=== PATIENT | female | born 1960 | race African-American/Black ===

== ENCOUNTER 2018-08-23 17:40 | Inpatient (IN) | payer MEDICAID, OTHER ==
[~2018-08-23] VITALS: Ht 167.6 cm; Wt 61.7 kg
[~2018-08-23 17:40] MED LIST: ETOMIDATE 2MG/ML 10ML VIAL IV ONE; SUCCINYLCHOLINE CHLORIDE 200MG/10ML IV ONE
[2018-08-23] MEDS ORDERED: METHYLPREDNISOLONE SOD SUCC 125 MG/2 ML VIAL IV STA (17:58)
[2018-08-23] MEDS ORDERED: ALBUTEROL (0.083%) 2.5MG/3ML NEB HHN STA (17:58)
[2018-08-23] MEDS ORDERED: IPRATROPIUM BROMIDE (0.02%) 0.5MG/2.5ML NEB HHN STA (17:58)
[2018-08-23] MEDS ORDERED: SODIUM CHLORIDE 0.9% 1000ML BAG (SEPSIS BOLUS) IV ONE (18:00)
[2018-08-23] MEDS ORDERED: LEVETIRACETAM 500MG PREMIX 100 ML IV ONE (18:00)
[2018-08-23] MEDS ORDERED: IPRATROPIUM/ALBUTEROL 0.5-3(2.5)MG/3ML NEB ONE (18:08)
[2018-08-23 18:22] LABS: CHLORIDE 103 mEq/L (98-107)
[2018-08-23 18:26] LABS: ETHANOL BLOOD < 10 mg/dL; HEMATOCRIT. 44.6 % (36.0-48.0); HEMOGLOBIN. 14.3 g/dL (12.0-16.0); MEAN CORPUSCULAR HEMOGLOBIN 30.3 pg (28.0-32.0); MEAN CORPUSCULAR VOLUME 94.5 fL (81.0-99.0); MEAN PLATELET VOLUME 7.9 fl (7.4-10.4); PLATELET 317 x1000/uL (130-400); RED BLOOD CELL COUNT 4.72 mill/uL (4.2-5.4); RED CELL DISTRIBUTION WIDTH 15.4 % (11.6-14.6)
[2018-08-23 18:27] LABS: D-DIMER 0.6 mg/L FEU (<0.50); PARTIAL THROMBOPLASTIN TIME 27.8 sec (23.4-31.0); PROTHROMBIN TIME 10.2 sec (9.6-11.0)
[2018-08-23 18:42] LABS: BG BASE EXCESS -10.6 mmol/L (-2.0-2.0); BG CARBOXYHEMOGLOBIN 2.6 % (0.5-1.5); BG DEOXYHEMOGLOBIN 5.9 % (0.0-5.0); BG FRACTION INSPIRED OXYGEN 21; BG HCO3 ACT 21.8 mmol/L (22.0-26.0); BG METHEMOGLOBIN 0.3 % (0.0-1.5); BG OXYGEN SATURATION 93.9 % (92.0-98.5); BG OXYHEMOGLOBIN 91.2 % (94.0-97.0); BG PCO2 81.1 mmHg (35.0-45.0); BG PH 7.048 (7.350-7.450); BG PO2 97.4 mmHg (75.0-100.0); BG SAMPLE SITE RIGHT RADIAL; BG TOTAL HEMOGLOBIN 15.9 g/dL (12.0-18.0); BG VENT MODE ROOM AIR
[2018-08-23] MEDS ORDERED: PROPOFOL 10MG/ML 100ML 100 ML IV SCH (18:45)
[2018-08-23 19:10] LABS: PLATELET ESTIMATE NORMAL
[2018-08-23] MEDS ORDERED: PIPERACILLIN/TAZ 3.375G PREMIX 50 ML IV ONE (19:15)
[2018-08-23] MEDS ORDERED: VANCOMYCIN 1 G PREMIX 200 ML IV SCH (19:15)
[2018-08-23] MEDS ORDERED: SODIUM CHLORIDE 0.9% 1,000 ML IV ONE (19:36)
[2018-08-23] MEDS ORDERED: MIDAZOLAM HCL 2 MG/2 ML VIAL ONE (19:40)
[2018-08-23] MEDS ORDERED: MIDAZOLAM HCL 50 MG in DEXTROSE 5% WATER 40 ML IV ONE ×6 (19:45)
[2018-08-23] MEDS ORDERED: MIDAZOLAM HCL 2 MG/2 ML VIAL IV ONE (19:45)
[2018-08-23] MEDS ORDERED: MIDAZOLAM HCL 50 MG in DEXTROSE 5% WATER 40 ML IV PRN (19:45)
[2018-08-23 20:16] LABS: BG BASE EXCESS -9.6 mmol/L (-2.0-2.0); BG CARBOXYHEMOGLOBIN 1.4 % (0.5-1.5); BG DEOXYHEMOGLOBIN 0.5 % (0.0-5.0); BG FRACTION INSPIRED OXYGEN 60; BG HCO3 ACT 18.2 mmol/L (22.0-26.0); BG METHEMOGLOBIN 0.4 % (0.0-1.5); BG OXYGEN SATURATION 99.5 % (92.0-98.5); BG OXYHEMOGLOBIN 97.7 % (94.0-97.0); BG PH 7.206 (7.350-7.450); BG PO2 344.8 mmHg (75.0-100.0); BG SAMPLE SITE LEFT BRACHIAL; BG TIDAL VOLUME(mL) 450 mL; BG TOTAL HEMOGLOBIN 14.2 g/dL (12.0-18.0); BG VENT MODE VENT - A/C; BG VENT RATE 18 set
[2018-08-23 21:36] LABS: CLARITY URINE CLOUDY (CLEAR); COLOR URINE YELLOW (YELLOW); KETONES URINE NEGATIVE (NEGATIVE); LEUKOCYTE ESTERASE URINE NEGATIVE (NEGATIVE); NITRITE URINE NEGATIVE (NEGATIVE); OCCULT BLOOD URINE 3+ (NEGATIVE); PH URINE 5.5 (4.5-8.0); PROTEIN URINE 2+ (NEGATIVE); SPECIFIC GRAVITY URINE 1.027 (1.005-1.030); UROBILINOGEN URINE 0.2 E.U./dL (0.2-1.0)
[2018-08-23] MEDS ORDERED: IOHEXOL-350 100 ML BOTTLE ONE (22:58)
[2018-08-23 23:01] VITALS: BP 134/92
[2018-08-23 23:22] VITALS: BP 140/99
[2018-08-23] MEDS ORDERED: TIOT4MIS2 IH (23:26)
[2018-08-23] MEDS ORDERED: ALBU05 IH (23:26)
[2018-08-23 23:30] VITALS: BP 132/93
[2018-08-23 23:45] VITALS: BP 145/98
[2018-08-23 23:55] VITALS: BP 134/92
[2018-08-24] VITALS (55 sets, daily range): BP systolic 108–179; BP diastolic 63–108
[2018-08-24] MEDS: PROPOFOL 10MG/ML 100ML 100 ML IV PRN ×3 (01:13→16:50)
[2018-08-24] MEDS ORDERED: NOREPINEPHRINE 8 MG in DEXT 5% WATER 242 ML IV PRN (01:15)
[2018-08-24] MEDS: METRONIDAZOLE 500 MG PREMIX 100 ML IV SCH ×3 (02:52→17:30)
[2018-08-24] MEDS: CEFEPIME 1,000 MG in DEXTROSE 5% WATER 50 ML IV SCH ×2 (03:55→14:32)
[2018-08-24 05:23] LABS: *AMPHETAMINES SCREEN URINE NEGATIVE (NEGATIVE); *BARBITURATES SCREEN URINE NEGATIVE (NEGATIVE); *BENZODIAZEPINES SCREEN URINE PRESUMTIVE POSITIVE (NEGATIVE); *COCAINE SCREEN URINE PRESUMTIVE POSITIVE (NEGATIVE); METHADONE URINE SCREEN NEGATIVE (NEGATIVE); OPIATES URINE SCREEN NEGATIVE (NEGATIVE)
[2018-08-24 05:24] LABS: CANNABINOID URINE SCREEN NEGATIVE (NEGATIVE); PHENCYCLIDINE URINE SCREEN NEGATIVE (NEGATIVE)
[2018-08-24 06:22] LABS: HEMATOCRIT. 42.2 % (36.0-48.0); HEMOGLOBIN. 13.8 g/dL (12.0-16.0); MEAN CORPUSCULAR HEMOGLOBIN 29.8 pg (28.0-32.0); MEAN PLATELET VOLUME 8.8 fl (7.4-10.4); PLATELET 193 x1000/uL (130-400); RED BLOOD CELL COUNT 4.64 mill/uL (4.2-5.4)
[2018-08-24 06:28] LABS: CHLORIDE 114 mEq/L (98-107)
[2018-08-24] MEDS: SODIUM CHLORIDE 0.9% 1,000 ML IV SCH ×2 (07:00→21:03)
[2018-08-24] MEDS: IPRATROPIUM/ALBUTEROL 0.5-3(2.5)MG/3ML NEB HHN SCH ×4 (08:44→20:05)
[2018-08-24 09:12] LABS: BG BASE EXCESS -4.4 mmol/L (-2.0-2.0); BG CARBOXYHEMOGLOBIN 0.3 % (0.5-1.5); BG DEOXYHEMOGLOBIN 0.9 % (0.0-5.0); BG FRACTION INSPIRED OXYGEN 40; BG METHEMOGLOBIN 0.2 % (0.0-1.5); BG OXYGEN SATURATION 99.1 % (92.0-98.5); BG OXYHEMOGLOBIN 98.6 % (94.0-97.0); BG PCO2 34.9 mmHg (35.0-45.0); BG PH 7.377 (7.350-7.450); BG PO2 178.2 mmHg (75.0-100.0); BG SAMPLE SITE RIGHT RADIAL; BG TIDAL VOLUME(mL) 450 mL; BG TOTAL HEMOGLOBIN 13.5 g/dL (12.0-18.0); BG VENT MODE VENT - A/C; BG VENT RATE 20 set
[2018-08-24] MEDS: BUDESONIDE 0.5MG/2ML NEB HHN SCH ×2 (11:24→20:05)
[2018-08-24] MEDS: LANSOPRAZOLE 30MG DR CAPSULE NG SCH (11:45)
[2018-08-24] MEDS: ENOXAPARIN 40MG/0.4ML SYR SUBCUT SCH (11:45)
[2018-08-24] MEDS: FENTANYL CITRATE/PF 500 MCG in SODIUM CHLORIDE 0.9% 40 ML IV PRN (14:15)
[2018-08-24] MEDS ORDERED: DEXTROSE 50% WATER 50ML SYRINGE IV PRN (15:00)
[2018-08-24] MEDS: INSULIN LISPRO 100 UNITS/ML SUBCUT SCH ×2 (16:00→22:00)
[2018-08-24 16:03] LABS: PLATELET ESTIMATE NORMAL
[2018-08-24] MEDS: BLOOD SUGAR DIAGNOSTIC STRIP TEST SCH ×2 (16:08→22:20)
[2018-08-24] MEDS: LEVETIRACETAM 500 MG in SODIUM CHLORIDE 0.9% 100 ML IV SCH (21:06)
[2018-08-25] VITALS (56 sets, daily range): BP systolic 95–188; BP diastolic 37–160
[2018-08-25] MEDS: IPRATROPIUM/ALBUTEROL 0.5-3(2.5)MG/3ML NEB HHN SCH ×7 (00:11→23:43)
[2018-08-25] MEDS: METRONIDAZOLE 500 MG PREMIX 100 ML IV SCH ×2 (01:35→11:25)
[2018-08-25] MEDS: CEFEPIME 1,000 MG in DEXTROSE 5% WATER 50 ML IV SCH (02:48)
[2018-08-25] MEDS: INSULIN LISPRO 100 UNITS/ML SUBCUT SCH ×4 (04:00→21:29)
[2018-08-25] MEDS: FENTANYL CITRATE/PF 500 MCG in SODIUM CHLORIDE 0.9% 40 ML IV PRN (04:32)
[2018-08-25] MEDS: BLOOD SUGAR DIAGNOSTIC STRIP TEST SCH ×4 (04:35→21:29)
[2018-08-25 05:29] LABS: HEMATOCRIT. 36.9 % (36.0-48.0); HEMOGLOBIN. 12.3 g/dL (12.0-16.0); MEAN CORPUSCULAR HEMOGLOBIN 30.2 pg (28.0-32.0); MEAN CORPUSCULAR VOLUME 90.9 fL (81.0-99.0); MEAN PLATELET VOLUME 7.6 fl (7.4-10.4); PLATELET 184 x1000/uL (130-400); RED BLOOD CELL COUNT 4.06 mill/uL (4.2-5.4); RED CELL DISTRIBUTION WIDTH 15.2 % (11.6-14.6)
[2018-08-25 05:42] LABS: CHLORIDE 117 mEq/L (98-107)
[2018-08-25] MEDS: SODIUM CHLORIDE 0.45% 1,000 ML IV SCH ×2 (07:00→20:36)
[2018-08-25] MEDS: PROPOFOL 10MG/ML 100ML 100 ML IV PRN (07:07)
[2018-08-25 07:52] LABS: BG BASE EXCESS -4.1 mmol/L (-2.0-2.0); BG CARBOXYHEMOGLOBIN 0.2 % (0.5-1.5); BG DEOXYHEMOGLOBIN 2.5 % (0.0-5.0); BG HCO3 ACT 20.6 mmol/L (22.0-26.0); BG METHEMOGLOBIN 0.2 % (0.0-1.5); BG OXYGEN SATURATION 97.5 % (92.0-98.5); BG OXYHEMOGLOBIN 97.1 % (94.0-97.0); BG PCO2 36.5 mmHg (35.0-45.0); BG PO2 102.9 mmHg (75.0-100.0); BG SAMPLE SITE RIGHT RADIAL; BG TIDAL VOLUME(mL) 450 mL; BG TOTAL HEMOGLOBIN 12.3 g/dL (12.0-18.0); BG VENT MODE VENT - A/C; BG VENT RATE 20 set
[2018-08-25] MEDS: BUDESONIDE 0.5MG/2ML NEB HHN SCH ×2 (08:00→20:13)
[2018-08-25] MEDS ORDERED: LIDOCAINE HCL/PF 1% 2ML VIAL ONE (08:35)
[2018-08-25] MEDS: LEVETIRACETAM 500 MG in SODIUM CHLORIDE 0.9% 100 ML IV SCH ×2 (08:45→20:38)
[2018-08-25] MEDS: LANSOPRAZOLE 30MG DR CAPSULE NG SCH (08:45)
[2018-08-25] MEDS: ENOXAPARIN 40MG/0.4ML SYR SUBCUT SCH (08:45)
[2018-08-25 09:49] LABS: PLATELET ESTIMATE NORMAL
[2018-08-25 11:58] LABS: BG BASE EXCESS -5.2 mmol/L (-2.0-2.0); BG CARBOXYHEMOGLOBIN 0.1 % (0.5-1.5); BG CPAP (cmH2O) 0 cm(H2O); BG DEOXYHEMOGLOBIN 1.7 % (0.0-5.0); BG HCO3 ACT 21.5 mmol/L (22.0-26.0); BG METHEMOGLOBIN 0.4 % (0.0-1.5); BG OXYGEN SATURATION 98.3 % (92.0-98.5); BG OXYHEMOGLOBIN 97.8 % (94.0-97.0); BG PCO2 46.1 mmHg (35.0-45.0); BG PH 7.286 (7.350-7.450); BG PO2 136.3 mmHg (75.0-100.0); BG SAMPLE SITE RIGHT RADIAL; BG TOTAL HEMOGLOBIN 13.1 g/dL (12.0-18.0); BG VENT MODE VENT - CPAP
[2018-08-25] MEDS ORDERED: METHYLPREDNISOLONE SOD SUCC 125 MG/2 ML VIAL IV SCH (12:00)
[2018-08-25] MEDS: CEFTRIAXONE 1 G PREMIX 50 ML IV SCH (13:23)
[2018-08-25] MEDS: HYDRALAZINE 20MG/ML VIAL IV PRN ×2 (13:23→18:41)
[2018-08-25] MEDS: AZITHROMYCIN 500MG in DEXTROSE 5% WATER 250ML IV SCH (13:23)
[2018-08-25] MEDS: MORPHINE SULFATE 2 MG/ML CPJ (NOT FOR IM USE) IV PRN ×2 (14:28→19:33)
[2018-08-25] MEDS: LORAZEPAM 2MG/ML CPJ IV PRN ×2 (14:28→23:58)
[2018-08-25] MEDS: METHYLPREDNISOLONE SOD SUCC 125 MG/2 ML VIAL IV SCH (20:16)
[2018-08-26] VITALS (60 sets, daily range): BP systolic 80–181; BP diastolic 35–114
[2018-08-26] MEDS: IPRATROPIUM/ALBUTEROL 0.5-3(2.5)MG/3ML NEB HHN SCH ×5 (03:03→19:55)
[2018-08-26] MEDS: METHYLPREDNISOLONE SOD SUCC 125 MG/2 ML VIAL IV SCH ×2 (03:24→13:16)
[2018-08-26] MEDS: BLOOD SUGAR DIAGNOSTIC STRIP TEST SCH ×4 (05:25→23:57)
[2018-08-26 05:35] LABS: BASOPHILS % 0.6 % (0.0-2.0); HEMATOCRIT. 37.1 % (36.0-48.0); HEMOGLOBIN. 12.4 g/dL (12.0-16.0); LYMPHOCYTES % 7.3 % (20.0-50.0); MEAN CORPUSCULAR HEMOGLOBIN 29.9 pg (28.0-32.0); MEAN CORPUSCULAR VOLUME 89.3 fL (81.0-99.0); MEAN PLATELET VOLUME 7.6 fl (7.4-10.4); MONOCYTES % 4.2 % (2.0-8.0); NEUTROPHILS % 87.9 % (40.0-76.0); PLATELET 200 x1000/uL (130-400); RED BLOOD CELL COUNT 4.15 mill/uL (4.2-5.4); RED CELL DISTRIBUTION WIDTH 14.8 % (11.6-14.6)
[2018-08-26 05:44] LABS: CHLORIDE 108 mEq/L (98-107)
[2018-08-26] MEDS: MORPHINE SULFATE 2 MG/ML CPJ (NOT FOR IM USE) IV PRN ×2 (05:53→16:09)
[2018-08-26] MEDS: INSULIN LISPRO 100 UNITS/ML SUBCUT SCH ×3 (06:00→17:40)
[2018-08-26] MEDS: BUDESONIDE 0.5MG/2ML NEB HHN SCH (08:03)
[2018-08-26] MEDS: FAMOTIDINE 20MG TABLET PO SCH ×2 (08:39→21:06)
[2018-08-26] MEDS: LORAZEPAM 2MG/ML CPJ IV PRN ×2 (08:39→16:09)
[2018-08-26] MEDS: AZITHROMYCIN 500MG in DEXTROSE 5% WATER 250ML IV SCH (08:40)
[2018-08-26] MEDS: LEVETIRACETAM 500 MG in SODIUM CHLORIDE 0.9% 100 ML IV SCH ×2 (08:40→21:05)
[2018-08-26] MEDS: ENOXAPARIN 40MG/0.4ML SYR SUBCUT SCH (08:40)
[2018-08-26 09:46] LABS: BG BASE EXCESS -3.9 mmol/L (-2.0-2.0); BG CARBOXYHEMOGLOBIN 0.3 % (0.5-1.5); BG DEOXYHEMOGLOBIN 1.8 % (0.0-5.0); BG FRACTION INSPIRED OXYGEN 35; BG METHEMOGLOBIN 0.5 % (0.0-1.5); BG OXYGEN SATURATION 98.2 % (92.0-98.5); BG OXYHEMOGLOBIN 97.4 % (94.0-97.0); BG PCO2 42.8 mmHg (35.0-45.0); BG PH 7.328 (7.350-7.450); BG PO2 126.4 mmHg (75.0-100.0); BG SAMPLE SITE RIGHT RADIAL; BG TIDAL VOLUME(mL) 500 mL; BG TOTAL HEMOGLOBIN 13.7 g/dL (12.0-18.0); BG VENT MODE VENT - A/C; BG VENT RATE 16 set
[2018-08-26] MEDS ORDERED: ALPRAZOLAM 0.5 MG TABLET PO PRN (10:15)
[2018-08-26] MEDS: ALPRAZOLAM 0.5 MG TABLET PO SCH ×3 (10:25→21:05)
[2018-08-26] MEDS: CEFTRIAXONE 1 G PREMIX 50 ML IV SCH (10:25)
[2018-08-26 11:55] LABS: BG BASE EXCESS -2.1 mmol/L (-2.0-2.0); BG CARBOXYHEMOGLOBIN 0.1 % (0.5-1.5); BG DEOXYHEMOGLOBIN 2.1 % (0.0-5.0); BG FRACTION INSPIRED OXYGEN 35; BG HCO3 ACT 24.1 mmol/L (22.0-26.0); BG METHEMOGLOBIN 0.5 % (0.0-1.5); BG OXYGEN SATURATION 97.9 % (92.0-98.5); BG OXYHEMOGLOBIN 97.3 % (94.0-97.0); BG PCO2 46.6 mmHg (35.0-45.0); BG PH 7.331 (7.350-7.450); BG PO2 118.1 mmHg (75.0-100.0); BG PRESSURE SUPPORT 8; BG SAMPLE SITE RIGHT RADIAL; BG TOTAL HEMOGLOBIN 13.2 g/dL (12.0-18.0); BG VENT MODE VENT - CPAP
[2018-08-26] MEDS ORDERED: LIDOCAINE HCL 1% 20ML VIAL (Pyxis) INJ ONE (12:02)
[2018-08-26] MEDS: SODIUM CHLORIDE 0.45% 1,000 ML IV SCH (13:16)
[2018-08-26] MEDS: HYDRALAZINE 20MG/ML VIAL IV PRN (15:45)
[2018-08-26] MEDS: IPRATROPIUM/ALBUTEROL 0.5-3(2.5)MG/3ML NEB HHN PRN (16:36)
[2018-08-26] MEDS ORDERED: RACEPINEPHRINE 2.25% 0.5ML NEB VIAL ONE (16:39)
[2018-08-26] MEDS: RACEPINEPHRINE 2.25% 0.5ML NEB VIAL HHN PRN (16:40)
[2018-08-26] MEDS ORDERED: TERBUTALINE SULFATE 1MG/ML VIAL SUBCUT ONE (16:45)
[2018-08-26] MEDS ORDERED: METHYLPREDNISOLONE SOD SUCC 125 MG/2 ML VIAL IV NR (16:45)
[2018-08-26] MEDS: FENTANYL CITRATE/PF 500 MCG in SODIUM CHLORIDE 0.9% 40 ML IV PRN (17:25)
[2018-08-26] MEDS: MIDAZOLAM HCL 100 MG in DEXT 5% WATER 80 ML IV PRN (17:26)
[2018-08-26 18:08] LABS: BG CARBOXYHEMOGLOBIN 0.6 % (0.5-1.5); BG DEOXYHEMOGLOBIN 0.5 % (0.0-5.0); BG FRACTION INSPIRED OXYGEN 60; BG HCO3 ACT 20.4 mmol/L (22.0-26.0); BG METHEMOGLOBIN 0.7 % (0.0-1.5); BG OXYGEN SATURATION 99.5 % (92.0-98.5); BG OXYHEMOGLOBIN 98.2 % (94.0-97.0); BG PCO2 35.5 mmHg (35.0-45.0); BG PH 7.378 (7.350-7.450); BG PO2 328.6 mmHg (75.0-100.0); BG SAMPLE SITE RIGHT RADIAL; BG TIDAL VOLUME(mL) 550 mL; BG TOTAL HEMOGLOBIN 14.6 g/dL (12.0-18.0); BG VENT MODE VENT - A/C; BG VENT RATE 20 set
[2018-08-26] MEDS: METHYLPREDNISOLONE SOD SUCC 40 MG/ML VIAL IV SCH (21:05)
[2018-08-27] VITALS (58 sets, daily range): BP systolic 107–163; BP diastolic 65–101
[2018-08-27] MEDS: FENTANYL CITRATE/PF 500 MCG in SODIUM CHLORIDE 0.9% 40 ML IV PRN ×3 (00:02→22:29)
[2018-08-27] MEDS: IPRATROPIUM/ALBUTEROL 0.5-3(2.5)MG/3ML NEB HHN SCH ×6 (00:08→20:42)
[2018-08-27] MEDS: SODIUM CHLORIDE 0.45% 1,000 ML IV SCH ×2 (01:31→16:12)
[2018-08-27 05:08] LABS: BASOPHILS % 0.2 % (0.0-2.0); HEMATOCRIT. 35.5 % (36.0-48.0); HEMOGLOBIN. 12.1 g/dL (12.0-16.0); LYMPHOCYTES % 10.3 % (20.0-50.0); MEAN CORPUSCULAR HEMOGLOBIN 30.2 pg (28.0-32.0); MEAN CORPUSCULAR VOLUME 88.5 fL (81.0-99.0); MEAN PLATELET VOLUME 7.7 fl (7.4-10.4); MONOCYTES % 5.4 % (2.0-8.0); NEUTROPHILS % 84.1 % (40.0-76.0); PLATELET 179 x1000/uL (130-400); RED BLOOD CELL COUNT 4.01 mill/uL (4.2-5.4); RED CELL DISTRIBUTION WIDTH 14.6 % (11.6-14.6)
[2018-08-27] MEDS: BLOOD SUGAR DIAGNOSTIC STRIP TEST SCH ×3 (05:10→18:15)
[2018-08-27] MEDS: METHYLPREDNISOLONE SOD SUCC 40 MG/ML VIAL IV SCH ×3 (05:14→22:27)
[2018-08-27] MEDS: ALPRAZOLAM 0.5 MG TABLET PO SCH ×3 (05:14→22:28)
[2018-08-27 05:15] LABS: CHLORIDE 108 mEq/L (98-107)
[2018-08-27] MEDS: INSULIN LISPRO 100 UNITS/ML SUBCUT SCH ×4 (05:29→18:00)
[2018-08-27] MEDS: BUDESONIDE 0.5MG/2ML NEB HHN SCH (07:18)
[2018-08-27 08:37] LABS: BG BASE EXCESS -3.6 mmol/L (-2.0-2.0); BG CARBOXYHEMOGLOBIN 0.3 % (0.5-1.5); BG FRACTION INSPIRED OXYGEN 40; BG METHEMOGLOBIN 0.2 % (0.0-1.5); BG OXYHEMOGLOBIN 98.5 % (94.0-97.0); BG PH 7.414 (7.350-7.450); BG PO2 190.5 mmHg (75.0-100.0); BG SAMPLE SITE RIGHT RADIAL; BG TIDAL VOLUME(mL) 550 mL; BG TOTAL HEMOGLOBIN 12.7 g/dL (12.0-18.0); BG VENT MODE VENT - A/C; BG VENT RATE 16 set
[2018-08-27] MEDS: LEVETIRACETAM 500 MG in SODIUM CHLORIDE 0.9% 100 ML IV SCH ×2 (09:20→22:27)
[2018-08-27] MEDS: FAMOTIDINE 20MG TABLET PO SCH ×2 (09:20→22:28)
[2018-08-27] MEDS: AZITHROMYCIN 500MG in DEXTROSE 5% WATER 250ML IV SCH (09:20)
[2018-08-27] MEDS: ENOXAPARIN 40MG/0.4ML SYR SUBCUT SCH (09:21)
[2018-08-27] MEDS: CEFTRIAXONE 1 G PREMIX 50 ML IV SCH (09:21)
[2018-08-27] MEDS: MIDAZOLAM HCL 100 MG in DEXT 5% WATER 80 ML IV PRN (22:29)
[2018-08-28] VITALS (29 sets, daily range): BP systolic 105–170; BP diastolic 65–111
[2018-08-28] MEDS: BLOOD SUGAR DIAGNOSTIC STRIP TEST SCH ×4 (00:29→18:16)
[2018-08-28] MEDS: IPRATROPIUM/ALBUTEROL 0.5-3(2.5)MG/3ML NEB HHN SCH ×6 (00:48→20:09)
[2018-08-28 05:45] LABS: BASOPHILS % 0.1 % (0.0-2.0); HEMATOCRIT. 37.7 % (36.0-48.0); HEMOGLOBIN. 12.6 g/dL (12.0-16.0); MEAN CORPUSCULAR HEMOGLOBIN 30.1 pg (28.0-32.0); MEAN PLATELET VOLUME 7.7 fl (7.4-10.4); MONOCYTES % 4.5 % (2.0-8.0); NEUTROPHILS % 86.4 % (40.0-76.0); PLATELET 209 x1000/uL (130-400); RED BLOOD CELL COUNT 4.19 mill/uL (4.2-5.4); RED CELL DISTRIBUTION WIDTH 14.7 % (11.6-14.6)
[2018-08-28] MEDS: INSULIN LISPRO 100 UNITS/ML SUBCUT SCH ×4 (05:50→18:00)
[2018-08-28] MEDS: ALPRAZOLAM 0.5 MG TABLET PO SCH ×3 (05:50→20:53)
[2018-08-28] MEDS: METHYLPREDNISOLONE SOD SUCC 40 MG/ML VIAL IV SCH ×3 (05:50→21:07)
[2018-08-28] MEDS: SODIUM CHLORIDE 0.45% 1,000 ML IV SCH ×2 (05:51→20:53)
[2018-08-28 06:04] LABS: CHLORIDE 106 mEq/L (98-107)
[2018-08-28 08:29] LABS: BG CARBOXYHEMOGLOBIN 0.3 % (0.5-1.5); BG FRACTION INSPIRED OXYGEN 30; BG HCO3 ACT 23.2 mmol/L (22.0-26.0); BG METHEMOGLOBIN 1.2 % (0.0-1.5); BG OXYHEMOGLOBIN 96.5 % (94.0-97.0); BG PCO2 41.3 mmHg (35.0-45.0); BG PH 7.367 (7.350-7.450); BG PO2 138.8 mmHg (75.0-100.0); BG SAMPLE SITE RIGHT RADIAL; BG TIDAL VOLUME(mL) 500 mL; BG TOTAL HEMOGLOBIN 12.6 g/dL (12.0-18.0); BG VENT MODE VENT - A/C; BG VENT RATE 14 set
[2018-08-28] MEDS: AZITHROMYCIN 500MG in DEXTROSE 5% WATER 250ML IV SCH (09:03)
[2018-08-28] MEDS: LEVETIRACETAM 500 MG in SODIUM CHLORIDE 0.9% 100 ML IV SCH ×2 (09:03→20:53)
[2018-08-28] MEDS: FAMOTIDINE 20MG TABLET PO SCH ×2 (09:03→20:53)
[2018-08-28] MEDS: ENOXAPARIN 40MG/0.4ML SYR SUBCUT SCH (09:03)
[2018-08-28] MEDS: FENTANYL CITRATE/PF 500 MCG in SODIUM CHLORIDE 0.9% 40 ML IV PRN ×2 (10:58→20:54)
[2018-08-28] MEDS: CEFTRIAXONE 1 G PREMIX 50 ML IV SCH (11:18)
[2018-08-28] MEDS: LORAZEPAM 2MG/ML CPJ IV PRN (16:40)
[2018-08-28] MEDS: MIDAZOLAM HCL 100 MG in DEXT 5% WATER 80 ML IV PRN (20:59)
[2018-08-29] VITALS (37 sets, daily range): BP systolic 86–156; BP diastolic 49–103
[2018-08-29] MEDS: IPRATROPIUM/ALBUTEROL 0.5-3(2.5)MG/3ML NEB HHN SCH ×7 (00:06→23:54)
[2018-08-29] MEDS: BLOOD SUGAR DIAGNOSTIC STRIP TEST SCH ×4 (00:48→17:44)
[2018-08-29 05:46] LABS: BASOPHILS % 0.1 % (0.0-2.0); HEMATOCRIT. 38.1 % (36.0-48.0); HEMOGLOBIN. 12.4 g/dL (12.0-16.0); LYMPHOCYTES % 7.8 % (20.0-50.0); MEAN CORPUSCULAR HEMOGLOBIN 29.6 pg (28.0-32.0); MEAN CORPUSCULAR VOLUME 90.6 fL (81.0-99.0); MEAN PLATELET VOLUME 8.3 fl (7.4-10.4); MONOCYTES % 10.2 % (2.0-8.0); NEUTROPHILS % 81.9 % (40.0-76.0); PLATELET 187 x1000/uL (130-400); RED CELL DISTRIBUTION WIDTH 14.4 % (11.6-14.6)
[2018-08-29] MEDS: INSULIN LISPRO 100 UNITS/ML SUBCUT SCH ×4 (06:00→17:57)
[2018-08-29 06:01] LABS: CHLORIDE 106 mEq/L (98-107)
[2018-08-29] MEDS: ALPRAZOLAM 0.5 MG TABLET PO SCH ×3 (06:53→21:46)
[2018-08-29] MEDS: METHYLPREDNISOLONE SOD SUCC 40 MG/ML VIAL IV SCH ×3 (06:53→21:46)
[2018-08-29 08:16] LABS: BG BASE EXCESS -0.6 mmol/L (-2.0-2.0); BG CARBOXYHEMOGLOBIN 0.3 % (0.5-1.5); BG CPAP (cmH2O) 0 cm(H2O); BG DEOXYHEMOGLOBIN 2.5 % (0.0-5.0); BG HCO3 ACT 26.4 mmol/L (22.0-26.0); BG METHEMOGLOBIN 0.3 % (0.0-1.5); BG OXYGEN SATURATION 97.5 % (92.0-98.5); BG OXYHEMOGLOBIN 96.9 % (94.0-97.0); BG PCO2 53.8 mmHg (35.0-45.0); BG PH 7.309 (7.350-7.450); BG SAMPLE SITE RIGHT RADIAL; BG TOTAL HEMOGLOBIN 12.9 g/dL (12.0-18.0); BG VENT MODE VENT - CPAP
[2018-08-29] MEDS: LEVETIRACETAM 500 MG in SODIUM CHLORIDE 0.9% 100 ML IV SCH ×2 (08:24→21:46)
[2018-08-29] MEDS: AZITHROMYCIN 500MG in DEXTROSE 5% WATER 250ML IV SCH (08:24)
[2018-08-29] MEDS: FAMOTIDINE 20MG TABLET PO SCH ×2 (08:24→21:46)
[2018-08-29] MEDS: ENOXAPARIN 40MG/0.4ML SYR SUBCUT SCH (08:24)
[2018-08-29] MEDS: HYDRALAZINE 20MG/ML VIAL IV PRN (09:16)
[2018-08-29] MEDS: CEFTRIAXONE 1 G PREMIX 50 ML IV SCH (10:19)
[2018-08-29] MEDS: SODIUM CHLORIDE 0.45% 1,000 ML IV SCH (11:32)
[2018-08-29] MEDS: BUDESONIDE 0.5MG/2ML NEB HHN SCH ×2 (11:41→20:16)
[2018-08-29] MEDS: FENTANYL CITRATE/PF 500 MCG in SODIUM CHLORIDE 0.9% 40 ML IV PRN (11:55)
[2018-08-29 20:55] LABS: BG BASE EXCESS 4.5 mmol/L (-2.0-2.0); BG CARBOXYHEMOGLOBIN 0.5 % (0.5-1.5); BG DEOXYHEMOGLOBIN 1.9 % (0.0-5.0); BG FRACTION INSPIRED OXYGEN 40; BG HCO3 ACT 30.5 mmol/L (22.0-26.0); BG METHEMOGLOBIN 0.6 % (0.0-1.5); BG OXYGEN SATURATION 98.1 % (92.0-98.5); BG PCO2 51.5 mmHg (35.0-45.0); BG PRESSURE SUPPORT 10; BG SAMPLE SITE LEFT RADIAL; BG TIDAL VOLUME(mL) 500 mL; BG TOTAL HEMOGLOBIN 12.4 g/dL (12.0-18.0); BG VENT MODE VENT - SIMV; BG VENT RATE 8 set
[2018-08-29] MEDS: MIDAZOLAM HCL 100 MG in DEXT 5% WATER 80 ML IV PRN (21:39)
[2018-08-30] VITALS (40 sets, daily range): BP systolic 67–176; BP diastolic 32–130
[2018-08-30] MEDS: BLOOD SUGAR DIAGNOSTIC STRIP TEST SCH ×5 (00:31→23:50)
[2018-08-30] MEDS: INSULIN LISPRO 100 UNITS/ML SUBCUT SCH ×5 (00:31→23:50)
[2018-08-30] MEDS: SODIUM CHLORIDE 0.45% 1,000 ML IV SCH ×2 (00:48→15:31)
[2018-08-30] MEDS: FENTANYL CITRATE/PF 500 MCG in SODIUM CHLORIDE 0.9% 40 ML IV PRN ×2 (01:11→17:57)
[2018-08-30] MEDS: IPRATROPIUM/ALBUTEROL 0.5-3(2.5)MG/3ML NEB HHN SCH ×4 (04:22→19:48)
[2018-08-30] MEDS: METHYLPREDNISOLONE SOD SUCC 40 MG/ML VIAL IV SCH ×3 (05:19→22:05)
[2018-08-30] MEDS: ALPRAZOLAM 0.5 MG TABLET PO SCH ×3 (05:21→22:05)
[2018-08-30 06:02] LABS: BASOPHILS % 0.1 % (0.0-2.0); HEMATOCRIT. 37.8 % (36.0-48.0); HEMOGLOBIN. 12.5 g/dL (12.0-16.0); LYMPHOCYTES % 9.8 % (20.0-50.0); MEAN CORPUSCULAR HEMOGLOBIN 29.8 pg (28.0-32.0); MEAN CORPUSCULAR VOLUME 90.1 fL (81.0-99.0); MEAN PLATELET VOLUME 9.2 fl (7.4-10.4); MONOCYTES % 12.2 % (2.0-8.0); NEUTROPHILS % 77.9 % (40.0-76.0); PLATELET 179 x1000/uL (130-400); RED CELL DISTRIBUTION WIDTH 14.5 % (11.6-14.6)
[2018-08-30 06:30] LABS: CHLORIDE 103 mEq/L (98-107)
[2018-08-30 07:34] LABS: BG BASE EXCESS 3.4 mmol/L (-2.0-2.0); BG CARBOXYHEMOGLOBIN 0.3 % (0.5-1.5); BG DEOXYHEMOGLOBIN 1.7 % (0.0-5.0); BG FRACTION INSPIRED OXYGEN 30; BG HCO3 ACT 28.6 mmol/L (22.0-26.0); BG METHEMOGLOBIN 0.1 % (0.0-1.5); BG OXYGEN SATURATION 98.3 % (92.0-98.5); BG OXYHEMOGLOBIN 97.9 % (94.0-97.0); BG PCO2 46.2 mmHg (35.0-45.0); BG PO2 123.5 mmHg (75.0-100.0); BG SAMPLE SITE RIGHT BRACHIAL; BG TIDAL VOLUME(mL) 500 mL; BG TOTAL HEMOGLOBIN 11.6 g/dL (12.0-18.0); BG VENT MODE VENT - A/C; BG VENT RATE 12 set
[2018-08-30] MEDS: LEVETIRACETAM 500 MG in SODIUM CHLORIDE 0.9% 100 ML IV SCH ×2 (08:14→21:01)
[2018-08-30] MEDS: AZITHROMYCIN 500 MG TABLET PO SCH (08:21)
[2018-08-30] MEDS: BUDESONIDE 0.5MG/2ML NEB HHN SCH ×2 (08:22→19:47)
[2018-08-30] MEDS: ENOXAPARIN 40MG/0.4ML SYR SUBCUT SCH (08:22)
[2018-08-30] MEDS: FAMOTIDINE 20MG TABLET PO SCH ×2 (08:22→21:01)
[2018-08-30] MEDS: CEFTRIAXONE 1 G PREMIX 50 ML IV SCH (10:23)
[2018-08-30 12:19] LABS: BG BASE EXCESS 1.2 mmol/L (-2.0-2.0); BG CARBOXYHEMOGLOBIN 0.3 % (0.5-1.5); BG DEOXYHEMOGLOBIN 1.7 % (0.0-5.0); BG FRACTION INSPIRED OXYGEN 30; BG HCO3 ACT 27.4 mmol/L (22.0-26.0); BG METHEMOGLOBIN 0.3 % (0.0-1.5); BG OXYGEN SATURATION 98.3 % (92.0-98.5); BG OXYHEMOGLOBIN 97.7 % (94.0-97.0); BG PCO2 49.5 mmHg (35.0-45.0); BG PH 7.361 (7.350-7.450); BG PO2 127.8 mmHg (75.0-100.0); BG PRESSURE SUPPORT 8; BG SAMPLE SITE RIGHT BRACHIAL; BG TOTAL HEMOGLOBIN 13.6 g/dL (12.0-18.0); BG VENT MODE VENT - CPAP
[2018-08-30] MEDS: HYDRALAZINE 20MG/ML VIAL IV PRN (15:30)
[2018-08-30] MEDS: LORAZEPAM 2MG/ML CPJ IV PRN ×2 (15:30→20:21)
[2018-08-30] MEDS: RACEPINEPHRINE 2.25% 0.5ML NEB VIAL HHN PRN (16:00)
[2018-08-30] MEDS: IPRATROPIUM/ALBUTEROL 0.5-3(2.5)MG/3ML NEB HHN PRN (16:00)
[2018-08-30] MEDS ORDERED: SODIUM CHLORIDE 0.9% 10ML VIAL ONE (16:32)
[2018-08-30] MEDS ORDERED: VECURONIUM BROMIDE 10 MG/VIAL IV ONE (16:32)
[2018-08-30] MEDS ORDERED: ETOMIDATE 2MG/ML 10ML VIAL IV ONE (16:32)
[2018-08-30 17:07] LABS: BG CARBOXYHEMOGLOBIN 0.4 % (0.5-1.5); BG DEOXYHEMOGLOBIN 0.6 % (0.0-5.0); BG FRACTION INSPIRED OXYGEN 50; BG METHEMOGLOBIN 0.3 % (0.0-1.5); BG OXYGEN SATURATION 99.4 % (92.0-98.5); BG OXYHEMOGLOBIN 98.7 % (94.0-97.0); BG PH 7.427 (7.350-7.450); BG PO2 221.6 mmHg (75.0-100.0); BG SAMPLE SITE RIGHT BRACHIAL; BG TIDAL VOLUME(mL) 500 mL; BG TOTAL HEMOGLOBIN 14.6 g/dL (12.0-18.0); BG VENT MODE VENT - A/C; BG VENT RATE 12 set
[2018-08-30] MEDS: MIDAZOLAM HCL 100 MG in DEXT 5% WATER 80 ML IV PRN (17:57)
[2018-08-31] VITALS (61 sets, daily range): BP systolic 80–154; BP diastolic 43–95
[2018-08-31] MEDS: IPRATROPIUM/ALBUTEROL 0.5-3(2.5)MG/3ML NEB HHN SCH ×7 (00:05→23:40)
[2018-08-31] MEDS: FENTANYL CITRATE/PF 500 MCG in SODIUM CHLORIDE 0.9% 40 ML IV PRN ×2 (03:48→17:44)
[2018-08-31 04:41] LABS: HEMOGLOBIN. 11.4 g/dL (12.0-16.0); MEAN CORPUSCULAR HEMOGLOBIN 30.3 pg (28.0-32.0); MEAN CORPUSCULAR VOLUME 90.6 fL (81.0-99.0); MEAN PLATELET VOLUME 8.6 fl (7.4-10.4); PLATELET 77 x1000/uL (130-400); RED BLOOD CELL COUNT 3.75 mill/uL (4.2-5.4); RED CELL DISTRIBUTION WIDTH 14.3 % (11.6-14.6)
[2018-08-31 04:50] LABS: CHLORIDE 105 mEq/L (98-107)
[2018-08-31] MEDS: SODIUM CHLORIDE 0.45% 1,000 ML IV SCH ×2 (05:17→20:06)
[2018-08-31] MEDS: BLOOD SUGAR DIAGNOSTIC STRIP TEST SCH ×3 (05:17→18:00)
[2018-08-31] MEDS: METHYLPREDNISOLONE SOD SUCC 40 MG/ML VIAL IV SCH ×3 (05:26→22:09)
[2018-08-31] MEDS: INSULIN LISPRO 100 UNITS/ML SUBCUT SCH ×3 (05:26→17:43)
[2018-08-31] MEDS: ALPRAZOLAM 0.5 MG TABLET PO SCH (05:26)
[2018-08-31 06:32] LABS: PLATELET ESTIMATE DECREAS
[2018-08-31 07:54] LABS: BG BASE EXCESS 3.2 mmol/L (-2.0-2.0); BG CARBOXYHEMOGLOBIN 0.1 % (0.5-1.5); BG DEOXYHEMOGLOBIN 1.4 % (0.0-5.0); BG FRACTION INSPIRED OXYGEN 35; BG HCO3 ACT 28.1 mmol/L (22.0-26.0); BG METHEMOGLOBIN 0.2 % (0.0-1.5); BG OXYGEN SATURATION 98.6 % (92.0-98.5); BG OXYHEMOGLOBIN 98.3 % (94.0-97.0); BG PCO2 44.3 mmHg (35.0-45.0); BG PO2 117.4 mmHg (75.0-100.0); BG SAMPLE SITE RIGHT BRACHIAL; BG TIDAL VOLUME(mL) 500 mL; BG TOTAL HEMOGLOBIN 11.3 g/dL (12.0-18.0); BG VENT MODE VENT - A/C; BG VENT RATE 12 set
[2018-08-31] MEDS: ENOXAPARIN 40MG/0.4ML SYR SUBCUT SCH (08:22)
[2018-08-31] MEDS: AZITHROMYCIN 500 MG TABLET PO SCH (08:23)
[2018-08-31] MEDS: FAMOTIDINE 20MG TABLET PO SCH ×2 (08:23→20:16)
[2018-08-31] MEDS: LEVETIRACETAM 500 MG in SODIUM CHLORIDE 0.9% 100 ML IV SCH ×2 (08:33→20:21)
[2018-08-31] MEDS: CEFTRIAXONE 1 G PREMIX 50 ML IV SCH (10:33)
[2018-08-31] MEDS: MIDAZOLAM HCL 100 MG in DEXT 5% WATER 80 ML IV PRN (10:37)
[2018-08-31] MEDS: POLYETHYLENE GLYCOL 3350 (17GM) 1 DOSE PACK PO SCH (15:19)
[2018-08-31] MEDS: DOCUSATE SODIUM SUGAR FREE 100MG/10ML UDC NG SCH (15:32)
[2018-08-31] MEDS: BUDESONIDE 0.5MG/2ML NEB HHN SCH (19:40)
[2018-09-01] VITALS (95 sets, daily range): BP systolic 80–171; BP diastolic 51–108
[2018-09-01] MEDS: BLOOD SUGAR DIAGNOSTIC STRIP TEST SCH ×5 (00:20→23:58)
[2018-09-01] MEDS: INSULIN LISPRO 100 UNITS/ML SUBCUT SCH ×4 (00:37→17:17)
[2018-09-01] MEDS: IPRATROPIUM/ALBUTEROL 0.5-3(2.5)MG/3ML NEB HHN SCH ×5 (03:57→20:36)
[2018-09-01 05:33] LABS: HEMATOCRIT. 33.4 % (36.0-48.0); HEMOGLOBIN. 11.3 g/dL (12.0-16.0); MEAN CORPUSCULAR HEMOGLOBIN 30.1 pg (28.0-32.0); MEAN CORPUSCULAR VOLUME 88.8 fL (81.0-99.0); MEAN PLATELET VOLUME 8.2 fl (7.4-10.4); PLATELET 221 x1000/uL (130-400); RED BLOOD CELL COUNT 3.76 mill/uL (4.2-5.4); RED CELL DISTRIBUTION WIDTH 14.1 % (11.6-14.6)
[2018-09-01 05:37] LABS: CHLORIDE 103 mEq/L (98-107)
[2018-09-01] MEDS: METHYLPREDNISOLONE SOD SUCC 40 MG/ML VIAL IV SCH ×3 (05:37→21:04)
[2018-09-01 07:23] LABS: PLATELET ESTIMATE NORMAL
[2018-09-01] MEDS: BUDESONIDE 0.5MG/2ML NEB HHN SCH ×2 (07:56→20:35)
[2018-09-01] MEDS: LEVETIRACETAM 500 MG in SODIUM CHLORIDE 0.9% 100 ML IV SCH ×2 (08:14→21:03)
[2018-09-01] MEDS: POLYETHYLENE GLYCOL 3350 (17GM) 1 DOSE PACK PO SCH (08:14)
[2018-09-01] MEDS: DOCUSATE SODIUM SUGAR FREE 100MG/10ML UDC NG SCH (08:14)
[2018-09-01] MEDS: AZITHROMYCIN 500 MG TABLET PO SCH (08:14)
[2018-09-01] MEDS: FAMOTIDINE 20MG TABLET PO SCH ×2 (08:14→21:03)
[2018-09-01] MEDS: FENTANYL CITRATE/PF 500 MCG in SODIUM CHLORIDE 0.9% 40 ML IV PRN ×2 (08:15→15:36)
[2018-09-01] MEDS: MIDAZOLAM HCL 50 MG in DEXTROSE 5% WATER 40 ML IV PRN ×2 (08:17→15:37)
[2018-09-01] MEDS: SODIUM CHLORIDE 0.45% 1,000 ML IV SCH (09:42)
[2018-09-01] MEDS: LORAZEPAM 2MG/ML CPJ IV PRN (09:42)
[2018-09-01] MEDS: CEFTRIAXONE 1 G PREMIX 50 ML IV SCH (10:16)
[2018-09-01] MEDS: ENOXAPARIN 40MG/0.4ML SYR SUBCUT SCH (11:12)
[2018-09-01] MEDS ORDERED: LACTULOSE 20G/30ML UDC PO SCH (13:30)
[2018-09-02] VITALS (74 sets, daily range): BP systolic 89–177; BP diastolic 53–139
[2018-09-02] MEDS: INSULIN LISPRO 100 UNITS/ML SUBCUT SCH ×4 (00:05→17:52)
[2018-09-02] MEDS: SODIUM CHLORIDE 0.45% 1,000 ML IV SCH ×2 (00:06→14:59)
[2018-09-02] MEDS: IPRATROPIUM/ALBUTEROL 0.5-3(2.5)MG/3ML NEB HHN SCH ×6 (00:18→20:06)
[2018-09-02] MEDS: MIDAZOLAM HCL 50 MG in DEXTROSE 5% WATER 40 ML IV PRN ×3 (04:13→22:38)
[2018-09-02] MEDS: FENTANYL CITRATE/PF 500 MCG in SODIUM CHLORIDE 0.9% 40 ML IV PRN ×2 (04:14→16:19)
[2018-09-02] MEDS: BLOOD SUGAR DIAGNOSTIC STRIP TEST SCH ×3 (05:31→18:47)
[2018-09-02] MEDS: METHYLPREDNISOLONE SOD SUCC 40 MG/ML VIAL IV SCH ×3 (05:41→22:38)
[2018-09-02 05:43] LABS: HEMATOCRIT. 35.3 % (36.0-48.0); HEMOGLOBIN. 11.7 g/dL (12.0-16.0); MEAN CORPUSCULAR HEMOGLOBIN 29.5 pg (28.0-32.0); MEAN PLATELET VOLUME 8.3 fl (7.4-10.4); PLATELET 277 x1000/uL (130-400); RED BLOOD CELL COUNT 3.97 mill/uL (4.2-5.4); RED CELL DISTRIBUTION WIDTH 14.1 % (11.6-14.6)
[2018-09-02 05:45] LABS: CHLORIDE 101 mEq/L (98-107)
[2018-09-02 05:49] LABS: PHOSPHORUS 3.5 mg/dL (2.5-4.9)
[2018-09-02 07:57] LABS: BG BASE EXCESS 3.3 mmol/L (-2.0-2.0); BG CARBOXYHEMOGLOBIN 0.3 % (0.5-1.5); BG DEOXYHEMOGLOBIN 1.9 % (0.0-5.0); BG FRACTION INSPIRED OXYGEN 35; BG HCO3 ACT 29.1 mmol/L (22.0-26.0); BG METHEMOGLOBIN 0.1 % (0.0-1.5); BG OXYGEN SATURATION 98.1 % (92.0-98.5); BG OXYHEMOGLOBIN 97.7 % (94.0-97.0); BG PCO2 49.1 mmHg (35.0-45.0); BG PO2 115.1 mmHg (75.0-100.0); BG SAMPLE SITE RIGHT RADIAL; BG TIDAL VOLUME(mL) 500 mL; BG VENT MODE VENT - A/C; BG VENT RATE 12 set
[2018-09-02] MEDS: LEVETIRACETAM 500 MG in SODIUM CHLORIDE 0.9% 100 ML IV SCH ×2 (08:45→21:58)
[2018-09-02] MEDS: DOCUSATE SODIUM SUGAR FREE 100MG/10ML UDC NG SCH (08:45)
[2018-09-02] MEDS: FAMOTIDINE 20MG TABLET PO SCH ×2 (08:45→20:37)
[2018-09-02 09:55] LABS: PLATELET ESTIMATE NORMAL
[2018-09-02] MEDS: ENOXAPARIN 40MG/0.4ML SYR SUBCUT SCH (11:02)
[2018-09-02] MEDS: HYDRALAZINE 20MG/ML VIAL IV PRN (16:17)
[2018-09-02] MEDS ORDERED: BISACODYL 10MG SUPP PR NR (19:00)
[2018-09-03] VITALS (88 sets, daily range): BP systolic 91–167; BP diastolic 52–98
[2018-09-03] MEDS: IPRATROPIUM/ALBUTEROL 0.5-3(2.5)MG/3ML NEB HHN SCH ×6 (00:13→20:34)
[2018-09-03] MEDS: FENTANYL CITRATE/PF 500 MCG in SODIUM CHLORIDE 0.9% 40 ML IV PRN ×3 (01:55→19:52)
[2018-09-03 05:38] LABS: BASOPHILS % 0.1 % (0.0-2.0); HEMATOCRIT. 31.9 % (36.0-48.0); HEMOGLOBIN. 10.9 g/dL (12.0-16.0); LYMPHOCYTES % 8.9 % (20.0-50.0); MEAN CORPUSCULAR HEMOGLOBIN 30.4 pg (28.0-32.0); MEAN CORPUSCULAR VOLUME 88.7 fL (81.0-99.0); MEAN PLATELET VOLUME 7.9 fl (7.4-10.4); MONOCYTES % 8.5 % (2.0-8.0); NEUTROPHILS % 82.5 % (40.0-76.0); PLATELET 247 x1000/uL (130-400); RED CELL DISTRIBUTION WIDTH 13.9 % (11.6-14.6)
[2018-09-03 05:52] LABS: CHLORIDE 101 mEq/L (98-107)
[2018-09-03] MEDS: INSULIN LISPRO 100 UNITS/ML SUBCUT SCH ×5 (06:00→23:12)
[2018-09-03] MEDS: METHYLPREDNISOLONE SOD SUCC 40 MG/ML VIAL IV SCH ×3 (06:19→21:15)
[2018-09-03] MEDS: SODIUM CHLORIDE 0.45% 1,000 ML IV SCH ×2 (06:19→21:15)
[2018-09-03] MEDS: BLOOD SUGAR DIAGNOSTIC STRIP TEST SCH ×5 (06:19→23:02)
[2018-09-03] MEDS: FAMOTIDINE 20MG TABLET PO SCH ×2 (08:10→20:31)
[2018-09-03] MEDS: LEVETIRACETAM 500 MG in SODIUM CHLORIDE 0.9% 100 ML IV SCH ×2 (08:10→21:15)
[2018-09-03] MEDS: DOCUSATE SODIUM SUGAR FREE 100MG/10ML UDC NG SCH (08:10)
[2018-09-03 08:22] LABS: BG BASE EXCESS 4.7 mmol/L (-2.0-2.0); BG CARBOXYHEMOGLOBIN 0.3 % (0.5-1.5); BG DEOXYHEMOGLOBIN 1.8 % (0.0-5.0); BG FRACTION INSPIRED OXYGEN 35; BG HCO3 ACT 30.2 mmol/L (22.0-26.0); BG METHEMOGLOBIN 0.1 % (0.0-1.5); BG OXYGEN SATURATION 98.2 % (92.0-98.5); BG OXYHEMOGLOBIN 97.8 % (94.0-97.0); BG PCO2 48.8 mmHg (35.0-45.0); BG PH 7.409 (7.350-7.450); BG PO2 129.9 mmHg (75.0-100.0); BG SAMPLE SITE LEFT RADIAL; BG TIDAL VOLUME(mL) 500 mL; BG TOTAL HEMOGLOBIN 11.7 g/dL (12.0-18.0); BG VENT MODE VENT - A/C; BG VENT RATE 12 set
[2018-09-03] MEDS: MIDAZOLAM HCL 50 MG in DEXTROSE 5% WATER 40 ML IV PRN ×2 (09:23→18:15)
[2018-09-03] MEDS: ENOXAPARIN 40MG/0.4ML SYR SUBCUT SCH (11:14)
[2018-09-03] MEDS ORDERED: DIATR MEGLU/DIATRIZOATE SOLN 30ML PO SCH (12:15)
[2018-09-03] MEDS ORDERED: IOHEXOL-300 100 ML BOTTLE ONE (20:08)
[2018-09-04] VITALS (90 sets, daily range): BP systolic 96–224; BP diastolic 62–170
[2018-09-04] MEDS: MIDAZOLAM HCL 50 MG in DEXTROSE 5% WATER 40 ML IV PRN ×3 (00:06→16:21)
[2018-09-04] MEDS: IPRATROPIUM/ALBUTEROL 0.5-3(2.5)MG/3ML NEB HHN SCH ×6 (00:25→20:09)
[2018-09-04] MEDS: FENTANYL CITRATE/PF 500 MCG in SODIUM CHLORIDE 0.9% 40 ML IV PRN ×3 (01:46→16:20)
[2018-09-04 05:40] LABS: BASOPHILS % 0.1 % (0.0-2.0); HEMATOCRIT. 30.3 % (36.0-48.0); HEMOGLOBIN. 10.3 g/dL (12.0-16.0); LYMPHOCYTES % 8.8 % (20.0-50.0); MEAN CORPUSCULAR HEMOGLOBIN 30.2 pg (28.0-32.0); MEAN CORPUSCULAR VOLUME 88.4 fL (81.0-99.0); MONOCYTES % 6.2 % (2.0-8.0); NEUTROPHILS % 84.9 % (40.0-76.0); PLATELET 247 x1000/uL (130-400); RED BLOOD CELL COUNT 3.43 mill/uL (4.2-5.4)
[2018-09-04] MEDS: BLOOD SUGAR DIAGNOSTIC STRIP TEST SCH ×4 (05:43→23:35)
[2018-09-04] MEDS: INSULIN LISPRO 100 UNITS/ML SUBCUT SCH ×4 (05:44→23:36)
[2018-09-04 05:46] LABS: CHLORIDE 101 mEq/L (98-107)
[2018-09-04] MEDS: METHYLPREDNISOLONE SOD SUCC 40 MG/ML VIAL IV SCH ×2 (05:51→17:07)
[2018-09-04] MEDS: DOCUSATE SODIUM SUGAR FREE 100MG/10ML UDC NG SCH (09:00)
[2018-09-04] MEDS ORDERED: NA PHOS,M-B/NA PHOS,DI-BA ENEMA 118ML PR PRN (09:15)
[2018-09-04] MEDS ORDERED: BISACODYL 10MG SUPP PR NR (09:15)
[2018-09-04] MEDS: LEVETIRACETAM 500 MG in SODIUM CHLORIDE 0.9% 100 ML IV SCH ×2 (09:44→20:40)
[2018-09-04] MEDS: FAMOTIDINE 20MG TABLET PO SCH ×3 (09:45→20:40)
[2018-09-04] MEDS: ENOXAPARIN 40MG/0.4ML SYR SUBCUT SCH (09:52)
[2018-09-04] MEDS: SODIUM CHLORIDE 0.45% 1,000 ML IV SCH ×2 (09:52→23:48)
[2018-09-04] MEDS: BUDESONIDE 0.5MG/2ML NEB HHN SCH ×2 (12:20→20:09)
[2018-09-04] MEDS: HYDRALAZINE 20MG/ML VIAL IV PRN (16:00)
[2018-09-04] MEDS: LORAZEPAM 2MG/ML CPJ IV PRN ×2 (16:09→20:24)
[2018-09-04] MEDS ORDERED: ROCURONIUM BROMIDE 10MG/ML VIAL 5ML IV ONE (18:27)
[2018-09-04] MEDS ORDERED: MIDAZOLAM HCL 2 MG/2 ML VIAL ONE (18:27)
[2018-09-04] MEDS ORDERED: CEFAZOLIN SODIUM 1000MG/VIAL ONE (18:39)
[2018-09-04] MEDS ORDERED: SODIUM CHLORIDE 0.9% 10ML VIAL ONE (18:39)
[2018-09-04] MEDS ORDERED: FENTANYL CITRATE/PF 50MCG/ML 2ML VIAL ONE (19:03)
[2018-09-04] MEDS: MORPHINE SULFATE 2 MG/ML CPJ (NOT FOR IM USE) IV PRN (20:25)
[2018-09-05] VITALS (37 sets, daily range): BP systolic 77–163; BP diastolic 23–116
[2018-09-05] MEDS: IPRATROPIUM/ALBUTEROL 0.5-3(2.5)MG/3ML NEB HHN SCH ×5 (00:18→20:51)
[2018-09-05] MEDS: LORAZEPAM 2MG/ML CPJ IV PRN ×4 (00:27→23:30)
[2018-09-05] MEDS: MORPHINE SULFATE 2 MG/ML CPJ (NOT FOR IM USE) IV PRN ×2 (00:28→05:03)
[2018-09-05] MEDS: BLOOD SUGAR DIAGNOSTIC STRIP TEST SCH ×4 (05:49→21:05)
[2018-09-05] MEDS: INSULIN LISPRO 100 UNITS/ML SUBCUT SCH ×4 (05:49→21:43)
[2018-09-05 05:56] LABS: INR 1.1; PARTIAL THROMBOPLASTIN TIME 24.2 sec (23.4-31.0)
[2018-09-05 05:57] LABS: BASOPHILS % 0.3 % (0.0-2.0); HEMATOCRIT. 36.9 % (36.0-48.0); HEMOGLOBIN. 12.2 g/dL (12.0-16.0); LYMPHOCYTES % 8.5 % (20.0-50.0); MEAN CORPUSCULAR HEMOGLOBIN 29.5 pg (28.0-32.0); MEAN PLATELET VOLUME 9.2 fl (7.4-10.4); MONOCYTES % 13.3 % (2.0-8.0); NEUTROPHILS % 77.9 % (40.0-76.0); PLATELET 260 x1000/uL (130-400); RED BLOOD CELL COUNT 4.14 mill/uL (4.2-5.4); RED CELL DISTRIBUTION WIDTH 14.4 % (11.6-14.6)
[2018-09-05 06:03] LABS: CHLORIDE 101 mEq/L (98-107)
[2018-09-05] MEDS: BUDESONIDE 0.5MG/2ML NEB HHN SCH ×2 (07:26→20:51)
[2018-09-05] MEDS: LEVETIRACETAM 500 MG in SODIUM CHLORIDE 0.9% 100 ML IV SCH ×2 (08:29→21:05)
[2018-09-05] MEDS: FAMOTIDINE 20MG TABLET PO SCH ×2 (08:30→21:06)
[2018-09-05] MEDS: METHYLPREDNISOLONE SOD SUCC 40 MG/ML VIAL IV SCH (08:30)
[2018-09-05] MEDS: DOCUSATE SODIUM SUGAR FREE 100MG/10ML UDC NG SCH (08:30)
[2018-09-05 08:33] LABS: BG BASE EXCESS 3.3 mmol/L (-2.0-2.0); BG CARBOXYHEMOGLOBIN 0.3 % (0.5-1.5); BG DEOXYHEMOGLOBIN 1.6 % (0.0-5.0); BG FRACTION INSPIRED OXYGEN 35; BG HCO3 ACT 28.5 mmol/L (22.0-26.0); BG OXYGEN SATURATION 98.4 % (92.0-98.5); BG OXYHEMOGLOBIN 98.1 % (94.0-97.0); BG PCO2 45.6 mmHg (35.0-45.0); BG PH 7.413 (7.350-7.450); BG PO2 135.5 mmHg (75.0-100.0); BG SAMPLE SITE RIGHT RADIAL; BG TIDAL VOLUME(mL) 500 mL; BG TOTAL HEMOGLOBIN 12.2 g/dL (12.0-18.0); BG VENT MODE VENT - A/C; BG VENT RATE 12 set
[2018-09-05] MEDS ORDERED: HYDROCODONE/ACETAMINOPHEN 5/325MG TABLET PO PRN (09:15)
[2018-09-05] MEDS ORDERED: HYDROMORPHONE HCL/PF 2MG/ML CPJ IV PRN (09:15)
[2018-09-05] MEDS ORDERED: HYDROCODONE/ACETAMINOPHEN 10/325MG TABLET PO PRN (09:15)
[2018-09-05] MEDS ORDERED: CEFAZOLIN 1000MG PREMIX 50 ML IV SCH (11:00)
[2018-09-05] MEDS: ENOXAPARIN 40MG/0.4ML SYR SUBCUT SCH (11:00)
[2018-09-05] MEDS: SODIUM CHLORIDE 0.45% 1,000 ML IV SCH (14:00)
[2018-09-06] VITALS (24 sets, daily range): BP systolic 86–174; BP diastolic 18–105
[2018-09-06] MEDS: IPRATROPIUM/ALBUTEROL 0.5-3(2.5)MG/3ML NEB HHN SCH ×6 (00:56→20:53)
[2018-09-06] MEDS: LORAZEPAM 2MG/ML CPJ IV PRN ×2 (04:11→10:04)
[2018-09-06] MEDS: SODIUM CHLORIDE 0.45% 1,000 ML IV SCH ×2 (04:18→20:15)
[2018-09-06] MEDS: RACEPINEPHRINE 2.25% 0.5ML NEB VIAL HHN PRN (04:21)
[2018-09-06] MEDS: ALPRAZOLAM 0.5 MG TABLET NG PRN (05:52)
[2018-09-06] MEDS: BLOOD SUGAR DIAGNOSTIC STRIP TEST SCH ×4 (05:53→23:36)
[2018-09-06] MEDS: INSULIN LISPRO 100 UNITS/ML SUBCUT SCH ×4 (05:53→23:42)
[2018-09-06 07:32] LABS: HEMATOCRIT. 33.9 % (36.0-48.0); HEMOGLOBIN. 11.2 g/dL (12.0-16.0); MEAN CORPUSCULAR HEMOGLOBIN 29.2 pg (28.0-32.0); MEAN CORPUSCULAR VOLUME 88.3 fL (81.0-99.0); MEAN PLATELET VOLUME 7.6 fl (7.4-10.4); PLATELET 273 x1000/uL (130-400); RED BLOOD CELL COUNT 3.83 mill/uL (4.2-5.4); RED CELL DISTRIBUTION WIDTH 14.4 % (11.6-14.6)
[2018-09-06 07:38] LABS: CHLORIDE 103 mEq/L (98-107)
[2018-09-06] MEDS: BUDESONIDE 0.5MG/2ML NEB HHN SCH ×2 (08:30→20:53)
[2018-09-06] MEDS: DOCUSATE SODIUM SUGAR FREE 100MG/10ML UDC NG SCH (08:35)
[2018-09-06] MEDS: FAMOTIDINE 20MG TABLET PO SCH ×2 (08:36→21:44)
[2018-09-06] MEDS ORDERED: METHYLPREDNISOLONE SOD SUCC 40 MG/ML VIAL IV SCH (09:00)
[2018-09-06] MEDS: LEVETIRACETAM 500 MG in SODIUM CHLORIDE 0.9% 100 ML IV SCH ×2 (09:48→21:43)
[2018-09-06] MEDS ORDERED: CEFAZOLIN 1000MG PREMIX 50 ML IV NR (10:00)
[2018-09-06 10:20] LABS: PLATELET ESTIMATE NORMAL
[2018-09-06] MEDS: ENOXAPARIN 40MG/0.4ML SYR SUBCUT SCH (10:52)
[2018-09-06] MEDS ORDERED: BACTERIOSTATIC SODIUM CHLORIDE 0.9% 30ML VIAL IJ ONE (11:01)
[2018-09-06] MEDS: QUETIAPINE FUMARATE 25MG TABLET PO SCH (12:15)
[2018-09-06] MEDS ORDERED: MIDAZOLAM HCL 5 MG/5 ML VIAL ONE ×2 (14:48→15:24)
[2018-09-06] MEDS ORDERED: FENTANYL CITRATE/PF 50MCG/ML 2ML VIAL ONE ×2 (14:48→15:24)
[2018-09-06] MEDS ORDERED: FENTANYL CITRATE/PF 50MCG/ML 2ML VIAL IV PRN (15:44)
[2018-09-06] MEDS ORDERED: MIDAZOLAM HCL 5 MG/5 ML VIAL IV PRN (15:45)
[2018-09-07] VITALS (11 sets, daily range): BP systolic 101–144; BP diastolic 62–90
[2018-09-07] MEDS: IPRATROPIUM/ALBUTEROL 0.5-3(2.5)MG/3ML NEB HHN SCH ×2 (00:20→08:38)
[2018-09-07] MEDS: BLOOD SUGAR DIAGNOSTIC STRIP TEST SCH ×4 (05:28→23:29)
[2018-09-07] MEDS: INSULIN LISPRO 100 UNITS/ML SUBCUT SCH ×4 (05:32→23:41)
[2018-09-07 06:26] LABS: CHLORIDE 102 mEq/L (98-107)
[2018-09-07 06:35] LABS: BASOPHILS % 0.3 % (0.0-2.0); EOSINOPHILS % 0.3 % (0.0-5.0); HEMATOCRIT. 29.6 % (36.0-48.0); LYMPHOCYTES % 10.3 % (20.0-50.0); MEAN CORPUSCULAR HEMOGLOBIN 29.9 pg (28.0-32.0); MEAN CORPUSCULAR VOLUME 88.3 fL (81.0-99.0); MEAN PLATELET VOLUME 7.7 fl (7.4-10.4); MONOCYTES % 12.7 % (2.0-8.0); NEUTROPHILS % 76.4 % (40.0-76.0); PLATELET 243 x1000/uL (130-400); RED BLOOD CELL COUNT 3.35 mill/uL (4.2-5.4); RED CELL DISTRIBUTION WIDTH 13.8 % (11.6-14.6)
[2018-09-07] MEDS: BUDESONIDE 0.5MG/2ML NEB HHN SCH ×2 (08:38→20:18)
[2018-09-07] MEDS ORDERED: PREDNISONE 20MG TABLET PO SCH (09:00)
[2018-09-07] MEDS: LORAZEPAM 2MG/ML CPJ IV PRN (09:40)
[2018-09-07] MEDS: QUETIAPINE FUMARATE 25MG TABLET PO SCH (09:57)
[2018-09-07] MEDS: DOCUSATE SODIUM SUGAR FREE 100MG/10ML UDC NG SCH (09:57)
[2018-09-07] MEDS: LEVETIRACETAM 500 MG in SODIUM CHLORIDE 0.9% 100 ML IV SCH ×2 (09:57→21:21)
[2018-09-07] MEDS: FAMOTIDINE 20MG TABLET PO SCH ×2 (09:57→21:21)
[2018-09-07] MEDS: SODIUM CHLORIDE 0.45% 1,000 ML IV SCH ×2 (09:58→23:30)
[2018-09-07] MEDS ORDERED: SODIUM CHLORIDE 0.9% 250 ML IV ONE (10:00)
[2018-09-07] MEDS: ENOXAPARIN 40MG/0.4ML SYR SUBCUT SCH (10:07)
[2018-09-07 10:25] LABS: BG CARBOXYHEMOGLOBIN 0.1 % (0.5-1.5); BG DEOXYHEMOGLOBIN 2.5 % (0.0-5.0); BG FRACTION INSPIRED OXYGEN 35; BG HCO3 ACT 30.5 mmol/L (22.0-26.0); BG METHEMOGLOBIN 0.3 % (0.0-1.5); BG OXYGEN SATURATION 97.5 % (92.0-98.5); BG OXYHEMOGLOBIN 97.1 % (94.0-97.0); BG PCO2 48.7 mmHg (35.0-45.0); BG PH 7.414 (7.350-7.450); BG PO2 106.6 mmHg (75.0-100.0); BG SAMPLE SITE RIGHT RADIAL; BG TIDAL VOLUME(mL) 500 mL; BG TOTAL HEMOGLOBIN 11.2 g/dL (12.0-18.0); BG VENT MODE VENT - A/C; BG VENT RATE 12 set
[2018-09-07] MEDS ORDERED: POTASSIUM CHLORIDE 20MEQ/PACKET PO SCH (10:30)
[2018-09-07] MEDS: METHYLPREDNISOLONE SOD SUCC 40 MG/ML VIAL IV SCH ×2 (11:06→21:21)
[2018-09-07] MEDS: IPRATROPIUM BROMIDE (0.02%) 0.5MG/2.5ML NEB HHN SCH ×3 (12:31→20:18)
[2018-09-08] VITALS (12 sets, daily range): BP systolic 117–156; BP diastolic 31–99
[2018-09-08] MEDS: IPRATROPIUM BROMIDE (0.02%) 0.5MG/2.5ML NEB HHN SCH ×6 (00:14→16:13)
[2018-09-08] MEDS: HYDRALAZINE 20MG/ML VIAL IV PRN ×2 (02:30→22:55)
[2018-09-08] MEDS: LORAZEPAM 2MG/ML CPJ IV PRN ×4 (04:59→22:56)
[2018-09-08] MEDS: BLOOD SUGAR DIAGNOSTIC STRIP TEST SCH ×3 (06:03→23:07)
[2018-09-08] MEDS: INSULIN LISPRO 100 UNITS/ML SUBCUT SCH ×4 (06:10→23:20)
[2018-09-08 07:13] LABS: CHLORIDE 106 mEq/L (98-107)
[2018-09-08] MEDS: BUDESONIDE 0.5MG/2ML NEB HHN SCH ×2 (08:15→19:45)
[2018-09-08] MEDS: ALPRAZOLAM 0.5 MG TABLET NG PRN (08:43)
[2018-09-08] MEDS: METHYLPREDNISOLONE SOD SUCC 40 MG/ML VIAL IV SCH ×2 (08:47→21:32)
[2018-09-08] MEDS: QUETIAPINE FUMARATE 25MG TABLET PO SCH (08:47)
[2018-09-08] MEDS: FAMOTIDINE 20MG TABLET PO SCH ×2 (08:47→21:33)
[2018-09-08] MEDS: LEVETIRACETAM 500 MG in SODIUM CHLORIDE 0.9% 100 ML IV SCH ×2 (08:48→21:33)
[2018-09-08] MEDS: DOCUSATE SODIUM SUGAR FREE 100MG/10ML UDC NG SCH (08:48)
[2018-09-08 09:33] LABS: MEAN CORPUSCULAR HEMOGLOBIN 29.5 pg (28.0-32.0); PLATELET 331 x1000/uL (130-400); RED CELL DISTRIBUTION WIDTH 14.1 % (11.6-14.6)
[2018-09-08 09:41] LABS: HEMOGLOBIN. 12.7 g/dL (12.0-16.0)
[2018-09-08 09:42] LABS: HEMATOCRIT. 38.2 % (36.0-48.0)
[2018-09-08 10:48] LABS: PLATELET ESTIMATE NORMAL
[2018-09-08] MEDS: MORPHINE SULFATE 2 MG/ML CPJ (NOT FOR IM USE) IV PRN (11:52)
[2018-09-08] MEDS: ENOXAPARIN 40MG/0.4ML SYR SUBCUT SCH (12:36)
[2018-09-08] MEDS: SODIUM CHLORIDE 0.45% 1,000 ML IV SCH (15:37)
[2018-09-09] VITALS (13 sets, daily range): BP systolic 109–158; BP diastolic 63–94
[2018-09-09] MEDS: IPRATROPIUM BROMIDE (0.02%) 0.5MG/2.5ML NEB HHN SCH ×5 (04:30→20:16)
[2018-09-09] MEDS: LORAZEPAM 2MG/ML CPJ IV PRN (05:12)
[2018-09-09] MEDS: BLOOD SUGAR DIAGNOSTIC STRIP TEST SCH ×3 (05:19→18:00)
[2018-09-09] MEDS: ALPRAZOLAM 0.5 MG TABLET NG PRN (05:19)
[2018-09-09] MEDS: MORPHINE SULFATE 2 MG/ML CPJ (NOT FOR IM USE) IV PRN (05:33)
[2018-09-09] MEDS: SODIUM CHLORIDE 0.45% 1,000 ML IV SCH ×2 (05:50→19:05)
[2018-09-09] MEDS: INSULIN LISPRO 100 UNITS/ML SUBCUT SCH ×3 (05:51→18:00)
[2018-09-09 08:05] LABS: CLARITY URINE CLOUDY (CLEAR); COLOR URINE YELLOW (YELLOW); KETONES URINE NEGATIVE (NEGATIVE); LEUKOCYTE ESTERASE URINE 1+ (NEGATIVE); NITRITE URINE NEGATIVE (NEGATIVE); OCCULT BLOOD URINE TRACE (NEGATIVE); PH URINE 7.5 (4.5-8.0); PROTEIN URINE NEGATIVE (NEGATIVE); SPECIFIC GRAVITY URINE 1.016 (1.005-1.030)
[2018-09-09] MEDS: BUDESONIDE 0.5MG/2ML NEB HHN SCH ×2 (08:25→21:16)
[2018-09-09 08:29] LABS: HEMATOCRIT. 32.4 % (36.0-48.0); MEAN CORPUSCULAR HEMOGLOBIN 29.3 pg (28.0-32.0); RED BLOOD CELL COUNT 3.61 mill/uL (4.2-5.4)
[2018-09-09 08:51] LABS: HEMOGLOBIN. 10.6 g/dL (12.0-16.0)
[2018-09-09 08:52] LABS: MEAN CORPUSCULAR VOLUME 89.9 fL (81.0-99.0)
[2018-09-09 09:17] LABS: CHLORIDE 105 mEq/L (98-107)
[2018-09-09] MEDS: DOCUSATE SODIUM SUGAR FREE 100MG/10ML UDC NG SCH (09:39)
[2018-09-09] MEDS: FAMOTIDINE 20MG TABLET PO SCH ×2 (09:39→21:29)
[2018-09-09] MEDS: METHYLPREDNISOLONE SOD SUCC 40 MG/ML VIAL IV SCH ×2 (09:39→21:29)
[2018-09-09] MEDS: QUETIAPINE FUMARATE 25MG TABLET PO SCH (09:40)
[2018-09-09] MEDS: LEVETIRACETAM 500 MG in SODIUM CHLORIDE 0.9% 100 ML IV SCH ×2 (09:40→21:30)
[2018-09-09] MEDS: ENOXAPARIN 40MG/0.4ML SYR SUBCUT SCH (12:32)
[2018-09-09 12:46] LABS: PLATELET ESTIMATE NORMAL
[2018-09-10] VITALS (12 sets, daily range): BP systolic 109–132; BP diastolic 55–84
[2018-09-10] MEDS: IPRATROPIUM BROMIDE (0.02%) 0.5MG/2.5ML NEB HHN SCH ×6 (00:25→20:18)
[2018-09-10] MEDS: INSULIN LISPRO 100 UNITS/ML SUBCUT SCH ×4 (00:35→18:18)
[2018-09-10] MEDS: BLOOD SUGAR DIAGNOSTIC STRIP TEST SCH ×4 (05:38→17:55)
[2018-09-10] MEDS: BUDESONIDE 0.5MG/2ML NEB HHN SCH ×2 (08:24→20:18)
[2018-09-10] MEDS: FAMOTIDINE 20MG TABLET PO SCH ×2 (09:31→21:09)
[2018-09-10] MEDS: QUETIAPINE FUMARATE 25MG TABLET PO SCH (09:31)
[2018-09-10] MEDS: METHYLPREDNISOLONE SOD SUCC 40 MG/ML VIAL IV SCH ×2 (09:32→21:09)
[2018-09-10] MEDS: DOCUSATE SODIUM SUGAR FREE 100MG/10ML UDC NG SCH (09:32)
[2018-09-10] MEDS: LEVETIRACETAM 500 MG in SODIUM CHLORIDE 0.9% 100 ML IV SCH ×2 (09:49→21:08)
[2018-09-10] MEDS: ENOXAPARIN 40MG/0.4ML SYR SUBCUT SCH (12:10)
[2018-09-10 13:52] LABS: CHLORIDE 105 mEq/L (98-107)
[2018-09-10 13:56] LABS: HEMOGLOBIN. 9.9 g/dL (12.0-16.0); MEAN CORPUSCULAR HEMOGLOBIN 29.3 pg (28.0-32.0); MEAN CORPUSCULAR VOLUME 88.9 fL (81.0-99.0); MEAN PLATELET VOLUME 9.5 fl (7.4-10.4); PLATELET 160 x1000/uL (130-400); RED BLOOD CELL COUNT 3.38 mill/uL (4.2-5.4); RED CELL DISTRIBUTION WIDTH 14.3 % (11.6-14.6)
[2018-09-10 14:16] LABS: PLATELET ESTIMATE NORMAL
[2018-09-10] MEDS: SODIUM CHLORIDE 0.45% 1,000 ML IV SCH (18:19)
[2018-09-10] MEDS: ACETAMINOPHEN 650MG/20.3ML UDC PO PRN (22:09)
[2018-09-11] VITALS (12 sets, daily range): BP systolic 117–158; BP diastolic 65–89
[2018-09-11] MEDS: INSULIN LISPRO 100 UNITS/ML SUBCUT SCH ×4 (00:10→17:48)
[2018-09-11] MEDS: IPRATROPIUM BROMIDE (0.02%) 0.5MG/2.5ML NEB HHN SCH ×6 (00:15→20:58)
[2018-09-11] MEDS: BLOOD SUGAR DIAGNOSTIC STRIP TEST SCH ×4 (05:39→17:28)
[2018-09-11 07:22] LABS: HEMATOCRIT. 30.7 % (36.0-48.0); HEMOGLOBIN. 10.1 g/dL (12.0-16.0); MEAN CORPUSCULAR HEMOGLOBIN 29.2 pg (28.0-32.0); MEAN CORPUSCULAR VOLUME 88.6 fL (81.0-99.0); MEAN PLATELET VOLUME 8.6 fl (7.4-10.4); PLATELET 217 x1000/uL (130-400); RED BLOOD CELL COUNT 3.46 mill/uL (4.2-5.4)
[2018-09-11] MEDS: LORAZEPAM 2MG/ML CPJ IV PRN (08:49)
[2018-09-11] MEDS: QUETIAPINE FUMARATE 25MG TABLET PO SCH (08:49)
[2018-09-11] MEDS: LEVETIRACETAM 500 MG in SODIUM CHLORIDE 0.9% 100 ML IV SCH ×2 (08:49→21:15)
[2018-09-11] MEDS: METHYLPREDNISOLONE SOD SUCC 40 MG/ML VIAL IV SCH (08:49)
[2018-09-11] MEDS: DOCUSATE SODIUM SUGAR FREE 100MG/10ML UDC NG SCH (08:49)
[2018-09-11] MEDS: FAMOTIDINE 20MG TABLET PO SCH ×2 (08:49→21:15)
[2018-09-11] MEDS: ENOXAPARIN 40MG/0.4ML SYR SUBCUT SCH (08:50)
[2018-09-11 09:18] LABS: CHLORIDE 106 mEq/L (98-107)
[2018-09-11] MEDS: ACETAMINOPHEN 650MG/20.3ML UDC PO PRN (12:19)
[2018-09-11] MEDS: CEFTRIAXONE 1 G PREMIX 50 ML IV SCH (13:59)
[2018-09-11] MEDS: AZITHROMYCIN 500 MG in DEXT 5% WATER 250 ML IV SCH (13:59)
[2018-09-11] MEDS: SODIUM CHLORIDE 0.45% 1,000 ML IV SCH ×2 (14:00)
[2018-09-11 16:07] LABS: PLATELET ESTIMATE NORMAL
[2018-09-12] VITALS (12 sets, daily range): BP systolic 90–160; BP diastolic 48–94
[2018-09-12] MEDS: INSULIN LISPRO 100 UNITS/ML SUBCUT SCH ×4 (00:33→18:28)
[2018-09-12] MEDS: BLOOD SUGAR DIAGNOSTIC STRIP TEST SCH ×4 (00:33→18:23)
[2018-09-12] MEDS: IPRATROPIUM BROMIDE (0.02%) 0.5MG/2.5ML NEB HHN SCH ×6 (01:00→20:45)
[2018-09-12] MEDS: LORAZEPAM 2MG/ML CPJ IV PRN ×2 (03:22→10:12)
[2018-09-12] MEDS: ACETAMINOPHEN 650MG/20.3ML UDC PO PRN ×3 (03:45→18:29)
[2018-09-12] MEDS: SODIUM CHLORIDE 0.45% 1,000 ML IV SCH ×2 (05:48→21:13)
[2018-09-12 07:41] LABS: HEMATOCRIT. 30.5 % (36.0-48.0); HEMOGLOBIN. 10.1 g/dL (12.0-16.0); MEAN CORPUSCULAR HEMOGLOBIN 29.6 pg (28.0-32.0); MEAN CORPUSCULAR VOLUME 89.5 fL (81.0-99.0); MEAN PLATELET VOLUME 9.4 fl (7.4-10.4); PLATELET 175 x1000/uL (130-400); RED BLOOD CELL COUNT 3.41 mill/uL (4.2-5.4); RED CELL DISTRIBUTION WIDTH 14.1 % (11.6-14.6)
[2018-09-12 08:06] LABS: CHLORIDE 105 mEq/L (98-107)
[2018-09-12] MEDS: DOCUSATE SODIUM SUGAR FREE 100MG/10ML UDC NG SCH (09:00)
[2018-09-12] MEDS ORDERED: METHYLPREDNISOLONE SOD SUCC 40 MG/ML VIAL IV SCH (09:00)
[2018-09-12] MEDS: QUETIAPINE FUMARATE 25MG TABLET PO SCH (09:42)
[2018-09-12] MEDS: FAMOTIDINE 20MG TABLET PO SCH ×2 (09:42→21:13)
[2018-09-12] MEDS: LEVETIRACETAM 500 MG in SODIUM CHLORIDE 0.9% 100 ML IV SCH ×2 (09:44→21:13)
[2018-09-12] MEDS: HYDRALAZINE 20MG/ML VIAL IV PRN (09:45)
[2018-09-12] MEDS: ENOXAPARIN 40MG/0.4ML SYR SUBCUT SCH (10:04)
[2018-09-12] MEDS: CEFTRIAXONE 1 G PREMIX 50 ML IV SCH (12:30)
[2018-09-12] MEDS: AZITHROMYCIN 500 MG in DEXT 5% WATER 250 ML IV SCH (13:02)
[2018-09-12 17:05] LABS: PLATELET ESTIMATE NORMAL
[2018-09-12] MEDS: BUDESONIDE 0.5MG/2ML NEB HHN SCH (20:45)
[2018-09-13] VITALS (11 sets, daily range): BP systolic 106–139; BP diastolic 58–84
[2018-09-13] MEDS: IPRATROPIUM BROMIDE (0.02%) 0.5MG/2.5ML NEB HHN SCH ×5 (00:25→16:16)
[2018-09-13] MEDS: BLOOD SUGAR DIAGNOSTIC STRIP TEST SCH ×4 (00:30→18:05)
[2018-09-13] MEDS: INSULIN LISPRO 100 UNITS/ML SUBCUT SCH ×4 (00:30→18:05)
[2018-09-13] MEDS: ACETAMINOPHEN 650MG/20.3ML UDC PO PRN (04:59)
[2018-09-13] MEDS: LORAZEPAM 2MG/ML CPJ IV PRN ×2 (05:00→18:05)
[2018-09-13 07:16] LABS: HEMATOCRIT. 29.8 % (36.0-48.0); HEMOGLOBIN. 9.9 g/dL (12.0-16.0); MEAN CORPUSCULAR HEMOGLOBIN 29.6 pg (28.0-32.0); MEAN CORPUSCULAR VOLUME 88.6 fL (81.0-99.0); MEAN PLATELET VOLUME 8.8 fl (7.4-10.4); PLATELET 192 x1000/uL (130-400); RED BLOOD CELL COUNT 3.36 mill/uL (4.2-5.4); RED CELL DISTRIBUTION WIDTH 14.1 % (11.6-14.6)
[2018-09-13 07:18] LABS: CHLORIDE 102 mEq/L (98-107)
[2018-09-13] MEDS: FAMOTIDINE 20MG TABLET PO SCH (08:08)
[2018-09-13] MEDS: LEVETIRACETAM 500 MG in SODIUM CHLORIDE 0.9% 100 ML IV SCH (08:08)
[2018-09-13] MEDS: QUETIAPINE FUMARATE 25MG TABLET PO SCH (08:08)
[2018-09-13] MEDS: DOCUSATE SODIUM SUGAR FREE 100MG/10ML UDC NG SCH (08:09)
[2018-09-13] MEDS: BUDESONIDE 0.5MG/2ML NEB HHN SCH (08:47)
[2018-09-13] MEDS ORDERED: PREDNISONE 20MG TABLET PO SCH (09:00)
[2018-09-13] MEDS: CEFTRIAXONE 1 G PREMIX 50 ML IV SCH (12:31)
[2018-09-13] MEDS: ENOXAPARIN 40MG/0.4ML SYR SUBCUT SCH (12:31)
[2018-09-13] MEDS: AZITHROMYCIN 500 MG in DEXT 5% WATER 250 ML IV SCH (14:04)
[2018-09-13 18:15] LABS: PLATELET ESTIMATE NORMAL
== END 2018-09-13 19:40 | DRG 4 ==
LOC: ER 17:40 → EDBEDREQTM 20:19 → EDBEDREQ 20:19 → EDBEDREQSVC 20:19 → CVICU 20:32 → EDBEDREQSVC 20:35 → EDBEDREQTM 20:35 → ENRESERV 21:10 → 5EST 09-05 12:09
PROVIDERS: ADMIT Internal Medicine; ATTEND Internal Medicine
PROC: 5A09357 Assistance with Respiratory Ventilation, Less than 24 Consecutive Hours, Continuous Positive Airway Pressure (ICD-10-PCS; 2018-08-23)
PROC: 0BH17EZ Insertion of Endotracheal Airway into Trachea, Via Natural or Artificial Opening (ICD-10-PCS; 2018-08-23)
PROC: 5A1945Z Respiratory Ventilation, 24-96 Consecutive Hours (ICD-10-PCS; 2018-08-23)
PROC: 0BH17EZ Insertion of Endotracheal Airway into Trachea, Via Natural or Artificial Opening (ICD-10-PCS; 2018-08-26)
PROC: 02HV33Z Insertion of Infusion Device into Superior Vena Cava, Percutaneous Approach (ICD-10-PCS; 2018-08-26)
PROC: B548ZZA Ultrasonography of Superior Vena Cava, Guidance (ICD-10-PCS; 2018-08-26)
PROC: 5A1945Z Respiratory Ventilation, 24-96 Consecutive Hours (ICD-10-PCS; 2018-08-26)
PROC: 5A1955Z Respiratory Ventilation, Greater than 96 Consecutive Hours (ICD-10-PCS; principal; 2018-08-30)
PROC: 0BH17EZ Insertion of Endotracheal Airway into Trachea, Via Natural or Artificial Opening (ICD-10-PCS; 2018-08-30)
PROC: 5A09357 Assistance with Respiratory Ventilation, Less than 24 Consecutive Hours, Continuous Positive Airway Pressure (ICD-10-PCS; 2018-08-30)
PROC: 02HV33Z Insertion of Infusion Device into Superior Vena Cava, Percutaneous Approach (ICD-10-PCS; 2018-08-31)
PROC: B548ZZA Ultrasonography of Superior Vena Cava, Guidance (ICD-10-PCS; 2018-08-31)
PROC: 0B113F4 Bypass Trachea to Cutaneous with Tracheostomy Device, Percutaneous Approach (ICD-10-PCS; 2018-09-04)
PROC: 0GTJ0ZZ Resection of Thyroid Gland Isthmus, Open Approach (ICD-10-PCS; 2018-09-04)
PROC: 0DH63UZ Insertion of Feeding Device into Stomach, Percutaneous Approach (ICD-10-PCS; 2018-09-11)
DX: T40.5X1A Poisoning by cocaine, accidental (unintentional), initial encounter (principal); E11.10 Type 2 diabetes mellitus with ketoacidosis without coma; D69.6 Thrombocytopenia, unspecified; J68.0 Bronchitis and pneumonitis due to chemicals, gases, fumes and vapors; R18.8 Other ascites; R13.10 Dysphagia, unspecified; E88.09 Other disorders of plasma-protein metabolism, not elsewhere classified; J96.02 Acute respiratory failure with hypercapnia; J96.01 Acute respiratory failure with hypoxia; I10 Essential (primary) hypertension; N39.0 Urinary tract infection, site not specified; F10.20 Alcohol dependence, uncomplicated; F14.10 Cocaine abuse, uncomplicated; K29.70 Gastritis, unspecified, without bleeding; T38.0X5A Adverse effect of glucocorticoids and synthetic analogues, initial encounter; S30.1XXA Contusion of abdominal wall, initial encounter; F32.9 Major depressive disorder, single episode, unspecified; K76.9 Liver disease, unspecified; G40.89 Other seizures; Z79.899 Other long term (current) drug therapy; Z78.1 Physical restraint status; Y92.89 Other specified places as the place of occurrence of the external cause; Z99.11 Dependence on respirator [ventilator] status
CPT/HCPCS: 31500; 36415; 36600; 70551; 71045; 71275; 74018; 74177; 76700; 76705; 76937; 80048; 80076; 80305; 80320; 82010; 82375; 82805; 82962; 83036; 83605; 83735; 83880; 84100; 84134; 84145; 84478; 84484; 85379; 87070; 93005; 93306; 93970; 94002; 94003; 94640; 94660; 99291; A6261; C1725; J0330; J0360; J0456; J0690; J0692; J0696; J1170; J1650; J1815; J1953; J2060; J2250; J2270; J2543; J2704; J2920; J2930; J3010; J3105; J3370; J3490; J7030; J7040; J7042; J7050; J7060; J7512; J7611; J7620; J7626; Q9963; Q9967; A4315; G0480

== ENCOUNTER → 2020-03-01 | Emergency (ER) | payer MEDICARE, MEDICAID ==
[~2020-03-01] VITALS: Ht 160 cm; Wt 50.0 kg
[~2020-03-01] MED LIST changes: +ALBU05 IH; +ALBUTEROL (0.083%) 2.5MG/3ML NEB HHN SCH; +ASPIRIN 81MG EC TABLET PO NR; +ASPIRIN 81MG EC TABLET PO ONE; -ETOMIDATE 2MG/ML 10ML VIAL IV ONE; +IPRATROPIUM BROMIDE (0.02%) 0.5MG/2.5ML NEB HHN STA; +LEVOFLOXACIN 750MG PREMIX 150 ML IV ONE; +METHYLPREDNISOLONE SOD SUCC 125 MG/2 ML VIAL IV STA; -SUCCINYLCHOLINE CHLORIDE 200MG/10ML IV ONE; +TIOT4MIS2 IH; +VANCOMYCIN 1 G PREMIX 200 ML IV ONE
[2020-03-01 18:41] VITALS: BP 151/94
[2020-03-01 19:55] LABS: BASOPHILS % 0.6 % (0.0-2.0); EOSINOPHILS % 0.4 % (0.0-5.0); HEMATOCRIT. 41.8 % (36.0-48.0); LYMPHOCYTES % 17.8 % (20.0-50.0); MEAN CORPUSCULAR HEMOGLOBIN 28.5 pg (28.0-32.0); MEAN CORPUSCULAR VOLUME 85.5 fL (81.0-99.0); MEAN PLATELET VOLUME 8.5 fl (7.4-10.4); NEUTROPHILS % 67.2 % (40.0-76.0); PLATELET 277 x1000/uL (130-400); RED BLOOD CELL COUNT 4.89 mill/uL (4.2-5.4)
[2020-03-01 20:13] LABS: CHLORIDE 106 mEq/L (98-107)
== END | disposition home or self-care (01) ==
LOC: ER 16:46 → CANBEDREQ 03-02 08:21
DX: J18.9 Pneumonia, unspecified organism (principal); J44.1 Chronic obstructive pulmonary disease with (acute) exacerbation; I21.4 Non-ST elevation (NSTEMI) myocardial infarction; E11.9 Type 2 diabetes mellitus without complications; I10 Essential (primary) hypertension; Z99.81 Dependence on supplemental oxygen; Z93.0 Tracheostomy status
CPT/HCPCS: 36415; 71045; 80053; 84145; 84484; 85025; 85610; 87040; 93005; 96365; 96366; 96368; 96374; 99285; J1956; J2930; J3370

== ENCOUNTER 2020-08-09 11:37 | Inpatient (IN) | payer MEDICARE, MEDICAID ==
[~2020-08-09] VITALS: Ht 160 cm; Wt 44.5 kg
[~2020-08-09 11:37] MED LIST changes: -ALBUTEROL (0.083%) 2.5MG/3ML NEB HHN SCH; -ASPIRIN 81MG EC TABLET PO NR; -ASPIRIN 81MG EC TABLET PO ONE; +ATOR10TA PO; +BUDE6HFA INH; +BUSP10TA4 PO; -IPRATROPIUM BROMIDE (0.02%) 0.5MG/2.5ML NEB HHN STA; +KEPP250 PO; -LEVOFLOXACIN 750MG PREMIX 150 ML IV ONE; +MED4 MT; -METHYLPREDNISOLONE SOD SUCC 125 MG/2 ML VIAL IV STA; -VANCOMYCIN 1 G PREMIX 200 ML IV ONE
[2020-08-09] MEDS ORDERED: IPRATROPIUM/ALBUTEROL 0.5-3(2.5)MG/3ML NEB HHN ONE (12:45)
[2020-08-09 13:21] LABS: BG CARBOXYHEMOGLOBIN 0.5 % (0.5-1.5); BG DEOXYHEMOGLOBIN 5.2 % (0.0-5.0); BG FRACTION INSPIRED OXYGEN 28; BG HCO3 ACT 28.3 mmol/L (22.0-26.0); BG METHEMOGLOBIN 0.3 % (0.0-1.5); BG OXYGEN SATURATION 94.8 % (92.0-98.5); BG PCO2 56.3 mmHg (35.0-45.0); BG PH 7.319 (7.350-7.450); BG PO2 79.8 mmHg (75.0-100.0); BG SAMPLE SITE RIGHT RADIAL; BG TOTAL HEMOGLOBIN 14.4 g/dL (12.0-18.0); BG VENT MODE NASAL CANNULA
[2020-08-09 13:38] LABS: BASOPHILS % 1.5 % (0.0-2.0); EOSINOPHILS % 5.5 % (0.0-5.0); HEMATOCRIT. 40.4 % (36.0-48.0); HEMOGLOBIN. 13.7 g/dL (12.0-16.0); LYMPHOCYTES % 29.1 % (20.0-50.0); MEAN CORPUSCULAR VOLUME 85.3 fL (81.0-99.0); MEAN PLATELET VOLUME 7.4 fl (7.4-10.4); MONOCYTES % 12.8 % (2.0-8.0); NEUTROPHILS % 51.1 % (40.0-76.0); PLATELET 260 x1000/uL (130-400); RED BLOOD CELL COUNT 4.74 mill/uL (4.2-5.4); RED CELL DISTRIBUTION WIDTH 14.6 % (11.6-14.6)
[2020-08-09 13:44] LABS: CHLORIDE 109 mEq/L (98-107)
[2020-08-09 13:53] LABS: CLARITY URINE CLEAR (CLEAR); COLOR URINE YELLOW (YELLOW); KETONES URINE NEGATIVE (NEGATIVE); LEUKOCYTE ESTERASE URINE NEGATIVE (NEGATIVE); NITRITE URINE NEGATIVE (NEGATIVE); OCCULT BLOOD URINE NEGATIVE (NEGATIVE); PH URINE 6.5 (4.5-8.0); PROTEIN URINE NEGATIVE (NEGATIVE); SPECIFIC GRAVITY URINE 1.013 (1.005-1.030); UROBILINOGEN URINE 0.2 E.U./dL (0.2-1.0)
[2020-08-09 14:12] LABS: *BARBITURATES SCREEN URINE NEGATIVE (NEGATIVE)
[2020-08-09 14:13] LABS: *AMPHETAMINES SCREEN URINE NEGATIVE (NEGATIVE); *BENZODIAZEPINES SCREEN URINE NEGATIVE (NEGATIVE); *COCAINE SCREEN URINE NEGATIVE (NEGATIVE); METHADONE URINE SCREEN NEGATIVE (NEGATIVE); OPIATES URINE SCREEN NEGATIVE (NEGATIVE)
[2020-08-09 14:14] LABS: CANNABINOID URINE SCREEN NEGATIVE (NEGATIVE); PHENCYCLIDINE URINE SCREEN NEGATIVE (NEGATIVE)
[2020-08-09] MEDS ORDERED: ACETAMINOPHEN 325MG TABLET PO ONE (19:15)
[2020-08-09] MEDS ORDERED: ONDANSETRON HCL 4MG/2ML INJ IV PRN (19:30)
[2020-08-09] MEDS ORDERED: ACETAMINOPHEN 325MG TABLET PO PRN (19:30)
[2020-08-09] MEDS ORDERED: CLONIDINE 0.1MG TABLET PO PRN (19:30)
[2020-08-09] MEDS ORDERED: IPRATROPIUM/ALBUTEROL 0.5-3(2.5)MG/3ML NEB HHN PRN (19:30)
[2020-08-09] MEDS ORDERED: METHYLPREDNISOLONE SOD SUCC 125 MG/2 ML VIAL IV NR (19:30)
[2020-08-09] MEDS ORDERED: DIPHENHYDRAMINE 50MG/ML VIAL IV PRN (19:30)
[2020-08-09] MEDS ORDERED: ENOXAPARIN 40MG/0.4ML SYR SUBCUT SCH (20:30)
[2020-08-09 22:53] VITALS: BP 147/87
[2020-08-09] MEDS ORDERED: *PATIENT'S OWN MEDICATION STORAGE XX SCH (23:45)
[2020-08-10 00:30] VITALS: BP 147/87
[2020-08-10 04:00] VITALS: BP 137/85
[2020-08-10 07:16] LABS: CHLORIDE 106 mEq/L (98-107)
[2020-08-10 07:30] LABS: LDL CHOLESTEROL 91 mg/dL (5-100)
[2020-08-10 07:31] LABS: HDL CHOLESTEROL 73 mg/dL (40-59)
[2020-08-10 07:42] LABS: BASOPHILS % 0.3 % (0.0-2.0); EOSINOPHILS % 0.1 % (0.0-5.0); HEMATOCRIT. 39.6 % (36.0-48.0); HEMOGLOBIN. 13.2 g/dL (12.0-16.0); MEAN CORPUSCULAR HEMOGLOBIN 28.2 pg (28.0-32.0); MEAN CORPUSCULAR VOLUME 84.5 fL (81.0-99.0); MEAN PLATELET VOLUME 7.9 fl (7.4-10.4); MONOCYTES % 1.3 % (2.0-8.0); NEUTROPHILS % 82.3 % (40.0-76.0); PLATELET 271 x1000/uL (130-400); RED BLOOD CELL COUNT 4.69 mill/uL (4.2-5.4); RED CELL DISTRIBUTION WIDTH 14.6 % (11.6-14.6)
[2020-08-10 08:00] VITALS: BP 104/62
[2020-08-10] MEDS ORDERED: AMLODIPINE 2.5MG TABLET PO NR (10:15)
[2020-08-10] MEDS ORDERED: METHYLPREDNISOLONE SOD SUCC 125 MG/2 ML VIAL IV SCH (11:00)
[2020-08-10 12:00] VITALS: BP 115/75
[2020-08-10] MEDS ORDERED: ALBUTEROL (0.083%) 2.5MG/3ML NEB HHN PRN (13:30)
[2020-08-10] MEDS: THEOPHYLLINE ANHYDROUS 80 MG/15 ML 120ML PO SCH ×2 (15:29→21:22)
[2020-08-10 16:00] VITALS: BP 121/69
[2020-08-10] MEDS: ALBUTEROL (0.083%) 2.5MG/3ML NEB HHN SCH (16:00)
[2020-08-10] MEDS: ACETYLCYSTEINE 100MG/ML 10% VIAL 4ML INH SCH (16:31)
[2020-08-10 20:00] VITALS: BP 108/73
[2020-08-10] MEDS: AMLODIPINE 2.5MG TABLET PO SCH (21:00)
[2020-08-10] MEDS: GUAIFENESIN 600MG ER TABLET PO SCH (21:21)
[2020-08-10] MEDS: ENOXAPARIN 30MG/0.3ML SYR SUBCUT SCH (21:21)
[2020-08-10] MEDS: METHYLPREDNISOLONE SOD SUCC 40 MG/ML VIAL IV SCH (21:22)
[2020-08-11] VITALS: BP 109/64
[2020-08-11 04:00] VITALS: BP 110/66
[2020-08-11] MEDS: THEOPHYLLINE ANHYDROUS 80 MG/15 ML 120ML PO SCH ×3 (05:02→21:40)
[2020-08-11] MEDS: METHYLPREDNISOLONE SOD SUCC 40 MG/ML VIAL IV SCH ×3 (05:02→21:49)
[2020-08-11 06:04] LABS: CHLORIDE 104 mEq/L (98-107)
[2020-08-11 08:25] VITALS: BP 101/67
[2020-08-11] MEDS: ACETYLCYSTEINE 100MG/ML 10% VIAL 4ML INH SCH (08:40)
[2020-08-11] MEDS: ALBUTEROL (0.083%) 2.5MG/3ML NEB HHN SCH (08:40)
[2020-08-11] MEDS: AMLODIPINE 2.5MG TABLET PO SCH ×2 (09:00→21:00)
[2020-08-11] MEDS: GUAIFENESIN 600MG ER TABLET PO SCH ×2 (09:05→21:39)
[2020-08-11 09:29] LABS: BG BASE EXCESS 4.8 mmol/L (-2.0-2.0); BG CARBOXYHEMOGLOBIN 0.1 % (0.5-1.5); BG DEOXYHEMOGLOBIN 4.2 % (0.0-5.0); BG FRACTION INSPIRED OXYGEN 28; BG HCO3 ACT 31.6 mmol/L (22.0-26.0); BG METHEMOGLOBIN 0.2 % (0.0-1.5); BG OXYGEN SATURATION 95.8 % (92.0-98.5); BG OXYHEMOGLOBIN 95.5 % (94.0-97.0); BG PO2 83.3 mmHg (75.0-100.0); BG SAMPLE SITE RIGHT RADIAL; BG TOTAL HEMOGLOBIN 13.9 g/dL (12.0-18.0); BG VENT MODE NASAL CANNULA
[2020-08-11 09:43] LABS: BASOPHILS % 0.3 % (0.0-2.0); HEMATOCRIT. 37.8 % (36.0-48.0); HEMOGLOBIN. 13.1 g/dL (12.0-16.0); LYMPHOCYTES % 10.4 % (20.0-50.0); MEAN CORPUSCULAR HEMOGLOBIN 29.2 pg (28.0-32.0); MEAN CORPUSCULAR VOLUME 84.4 fL (81.0-99.0); MEAN PLATELET VOLUME 7.6 fl (7.4-10.4); MONOCYTES % 1.1 % (2.0-8.0); NEUTROPHILS % 88.2 % (40.0-76.0); PLATELET 290 x1000/uL (130-400); RED BLOOD CELL COUNT 4.47 mill/uL (4.2-5.4); RED CELL DISTRIBUTION WIDTH 14.4 % (11.6-14.6)
[2020-08-11] MEDS ORDERED: IPRATROPIUM BROMIDE (0.02%) 0.5MG/2.5ML NEB HHN PRN (12:15)
[2020-08-11] MEDS: METHIMAZOLE 5MG TABLET PO SCH (14:10)
[2020-08-11] MEDS: IPRATROPIUM BROMIDE (0.02%) 0.5MG/2.5ML NEB HHN SCH ×2 (14:27→20:31)
[2020-08-11] MEDS: ENOXAPARIN 30MG/0.3ML SYR SUBCUT SCH (21:40)
[2020-08-11 23:50] VITALS: BP 107/65
[2020-08-12] MEDS: IPRATROPIUM BROMIDE (0.02%) 0.5MG/2.5ML NEB HHN SCH ×3 (01:37→14:05)
[2020-08-12 05:00] VITALS: BP 106/60
[2020-08-12] MEDS: METHYLPREDNISOLONE SOD SUCC 40 MG/ML VIAL IV SCH ×2 (05:19→14:46)
[2020-08-12] MEDS: THEOPHYLLINE ANHYDROUS 80 MG/15 ML 120ML PO SCH ×2 (06:03→14:47)
[2020-08-12 06:21] LABS: BASOPHILS % 0.6 % (0.0-2.0); HEMATOCRIT. 39.2 % (36.0-48.0); HEMOGLOBIN. 13.2 g/dL (12.0-16.0); LYMPHOCYTES % 14.1 % (20.0-50.0); MEAN CORPUSCULAR HEMOGLOBIN 28.6 pg (28.0-32.0); MEAN CORPUSCULAR VOLUME 84.9 fL (81.0-99.0); MEAN PLATELET VOLUME 7.6 fl (7.4-10.4); MONOCYTES % 5.4 % (2.0-8.0); NEUTROPHILS % 79.9 % (40.0-76.0); PLATELET 290 x1000/uL (130-400); RED BLOOD CELL COUNT 4.61 mill/uL (4.2-5.4); RED CELL DISTRIBUTION WIDTH 14.7 % (11.6-14.6)
[2020-08-12 06:35] LABS: CHLORIDE 105 mEq/L (98-107)
[2020-08-12 08:07] VITALS: BP 105/65
[2020-08-12] MEDS: AMLODIPINE 2.5MG TABLET PO SCH (09:20)
[2020-08-12] MEDS: GUAIFENESIN 600MG ER TABLET PO SCH (09:20)
[2020-08-12] MEDS: METHIMAZOLE 5MG TABLET PO SCH (09:20)
[2020-08-12 12:00] VITALS: BP 109/68
[2020-08-12 13:11] LABS: A/G RATIO 1.3 (0.7-1.7); ALBUMIN 3.6 g/dL (2.9-4.4); ALPHA-1-GLOBULIN 0.3 g/dL (0.0-0.4); ALPHA-2-GLOBULIN 0.7 g/dL (0.4-1.0); GAMMA GLOBULINS 0.8 g/dL (0.4-1.8); GLOBULIN TOTAL 2.8 g/dL (2.2-3.9); M-SPIKE Not Observed g/dL (Not Observed); TOTAL PROTEIN SERUM 6.4 g/dL (6.0-8.5)
[2020-08-12] MEDS ORDERED: MED4 MT (13:32)
[2020-08-12 13:58] VITALS: BP 116/54
== END 2020-08-12 17:39 | disposition home or self-care (01) | DRG 280 ==
LOC: ER 11:37 → EDBEDREQ 16:36 → 8WST 18:09 → EDBEDREQ 18:12 → EDBEDREQSVC 18:12 → ENRESERV 21:30
PROVIDERS: ADMIT Internal Medicine; ATTEND Internal Medicine
DX: I21.4 Non-ST elevation (NSTEMI) myocardial infarction (principal); J96.21 Acute and chronic respiratory failure with hypoxia; I50.43 Acute on chronic combined systolic (congestive) and diastolic (congestive) heart failure; E87.2 Acidosis; I31.3 Pericardial effusion (noninflammatory); I11.0 Hypertensive heart disease with heart failure; J43.9 Emphysema, unspecified; E05.90 Thyrotoxicosis, unspecified without thyrotoxic crisis or storm; E78.5 Hyperlipidemia, unspecified; G40.909 Epilepsy, unspecified, not intractable, without status epilepticus; R00.0 Tachycardia, unspecified; M19.90 Unspecified osteoarthritis, unspecified site; E03.9 Hypothyroidism, unspecified; F41.9 Anxiety disorder, unspecified; I27.20 Pulmonary hypertension, unspecified; Z87.01 Personal history of pneumonia (recurrent); Z87.891 Personal history of nicotine dependence; Z99.81 Dependence on supplemental oxygen; Z79.51 Long term (current) use of inhaled steroids; Z79.52 Long term (current) use of systemic steroids; Z91.19 Patient's noncompliance with other medical treatment and regimen
CPT/HCPCS: 36415; 36600; 71045; 80048; 80053; 80061; 80305; 81003; 82375; 82805; 83605; 83735; 83880; 84155; 84165; 84443; 84484; 85025; 87070; 93005; 93970; 94640; 99285; J1650; J2920; J2930; J7608

== ENCOUNTER 2020-10-09 20:21 | Inpatient (IN) | payer MEDICARE, OTHER ==
[~2020-10-09] VITALS: Ht 167.6 cm; Wt 54.4 kg
[~2020-10-09 20:21] MED LIST changes: -MED4 MT; +P20 MT
[2020-10-09] MEDS ORDERED: LEVOFLOXACIN 750MG PREMIX 150 ML IV STA (22:24)
[2020-10-09] MEDS ORDERED: MAGNESIUM 2 G PREMIX 50 ML IV STA (22:24)
[2020-10-09] MEDS ORDERED: ALBUTEROL (0.083%) 2.5MG/3ML NEB HHN STA (22:24)
[2020-10-09] MEDS ORDERED: METHYLPREDNISOLONE SOD SUCC 125 MG/2 ML VIAL IV STA (22:24)
[2020-10-09] MEDS ORDERED: IPRATROPIUM BROMIDE (0.02%) 0.5MG/2.5ML NEB HHN STA (22:24)
[2020-10-09 23:01] LABS: HEMATOCRIT 44.9 % (36.0-48.0); HEMOGLOBIN 14.6 g/dL (12.0-16.0); MEAN CORPUSCULAR HEMOGLOBIN 27.6 pg (28.0-32.0); MEAN CORPUSCULAR VOLUME 85.1 fL (81.0-99.0); PLATELET 432 x1000/uL (130-400); RED BLOOD CELL COUNT 5.28 mill/uL (4.2-5.4); RED CELL DISTRIBUTION WIDTH 15.4 % (11.6-14.6)
[2020-10-09 23:08] LABS: CHLORIDE 103 mEq/L (98-107)
[2020-10-10] MEDS ORDERED: ONDANSETRON HCL 4MG/2ML INJ IV PRN (09:00)
[2020-10-10] MEDS ORDERED: ACETAMINOPHEN 325MG TABLET PO PRN (09:00)
[2020-10-10] MEDS ORDERED: CEFTRIAXONE 1 G PREMIX 50 ML IV SCH (09:00)
[2020-10-10] MEDS ORDERED: CEFTRIAXONE SODIUM 1 G/VIAL ONE (09:15)
[2020-10-10] MEDS: METHYLPREDNISOLONE SOD SUCC 40 MG/ML VIAL IV SCH ×2 (09:33→17:34)
[2020-10-10] MEDS: ENOXAPARIN 40MG/0.4ML SYR SUBCUT SCH (09:34)
[2020-10-10] MEDS: FAMOTIDINE 20MG TABLET PO SCH (09:41)
[2020-10-10] MEDS: CEFTRIAXONE 1,000 MG in DEXTROSE 5% WATER 50 ML IV SCH (11:07)
[2020-10-10] MEDS: IPRATROPIUM/ALBUTEROL 0.5-3(2.5)MG/3ML NEB HHN SCH ×3 (12:03→20:00)
[2020-10-10 22:00] VITALS: BP 154/72
[2020-10-11] VITALS (18 sets, daily range): BP systolic 97–140; BP diastolic 57–81
[2020-10-11] MEDS: IPRATROPIUM/ALBUTEROL 0.5-3(2.5)MG/3ML NEB HHN SCH ×6 (00:20→21:22)
[2020-10-11] MEDS: METHYLPREDNISOLONE SOD SUCC 40 MG/ML VIAL IV SCH ×3 (06:24→16:48)
[2020-10-11] MEDS: FLUTICASONE PROPIONATE 50MCG/SPRAY BOTTLE BOTHNSTRLS SCH ×3 (06:24→20:31)
[2020-10-11] MEDS: FAMOTIDINE 20MG TABLET PO SCH ×3 (06:24→20:30)
[2020-10-11] MEDS ORDERED: ENOXAPARIN 40MG/0.4ML SYR SUBCUT SCH (07:00)
[2020-10-11] MEDS ORDERED: ACETAMINOPHEN 325MG TABLET PO PRN (08:00)
[2020-10-11] MEDS ORDERED: PANTOPRAZOLE 40MG DR TABLET PO SCH (08:00)
[2020-10-11] MEDS: ENOXAPARIN 40MG/0.4ML SYR SUBCUT SCH (08:23)
[2020-10-11] MEDS: LEVETIRACETAM 500MG TABLET PO SCH ×2 (08:24→20:30)
[2020-10-11] MEDS: BUSPIRONE HCL 5MG TABLET PO SCH ×2 (08:24→20:30)
[2020-10-11] MEDS: CEFTRIAXONE 1,000 MG in DEXTROSE 5% WATER 50 ML IV SCH (08:24)
[2020-10-11 08:57] LABS: BG BASE EXCESS 8.5 mmol/L (-2.0-2.0); BG CARBOXYHEMOGLOBIN 0.3 % (0.5-1.5); BG DEOXYHEMOGLOBIN 11.8 % (0.0-5.0); BG HCO3 ACT 35.7 mmol/L (22.0-26.0); BG METHEMOGLOBIN 0.2 % (0.0-1.5); BG OXYGEN SATURATION 88.1 % (92.0-98.5); BG OXYHEMOGLOBIN 87.7 % (94.0-97.0); BG PCO2 61.8 mmHg (35.0-45.0); BG PH 7.379 (7.350-7.450); BG PO2 55.4 mmHg (75.0-100.0); BG SAMPLE SITE RIGHT RADIAL; BG TOTAL HEMOGLOBIN 12.7 g/dL (12.0-18.0); BG VENT MODE MASK - BIPAP
[2020-10-11 12:09] LABS: HEMATOCRIT. 33.6 % (36.0-48.0); HEMOGLOBIN. 11.1 g/dL (12.0-16.0); MEAN CORPUSCULAR HEMOGLOBIN 27.8 pg (28.0-32.0); MEAN CORPUSCULAR VOLUME 84.2 fL (81.0-99.0); MEAN PLATELET VOLUME 7.3 fl (7.4-10.4); PLATELET 341 x1000/uL (130-400); RED BLOOD CELL COUNT 3.99 mill/uL (4.2-5.4); RED CELL DISTRIBUTION WIDTH 15.2 % (11.6-14.6)
[2020-10-11 12:21] LABS: CHLORIDE 102 mEq/L (98-107)
[2020-10-11 18:22] LABS: PLATELET ESTIMATE NORMAL
[2020-10-11] MEDS: LEVOFLOXACIN 500MG PREMIX 100 ML IV SCH (20:30)
[2020-10-12] VITALS (21 sets, daily range): BP systolic 94–135; BP diastolic 50–112
[2020-10-12] MEDS: METHYLPREDNISOLONE SOD SUCC 40 MG/ML VIAL IV SCH ×3 (00:45→17:18)
[2020-10-12] MEDS: IPRATROPIUM/ALBUTEROL 0.5-3(2.5)MG/3ML NEB HHN SCH ×6 (01:11→20:52)
[2020-10-12] MEDS: BUSPIRONE HCL 5MG TABLET PO SCH ×2 (09:29→21:11)
[2020-10-12] MEDS: LEVETIRACETAM 500MG TABLET PO SCH ×2 (09:29→21:11)
[2020-10-12] MEDS: FAMOTIDINE 20MG TABLET PO SCH ×2 (09:29→21:11)
[2020-10-12] MEDS: CEFTRIAXONE 1,000 MG in DEXTROSE 5% WATER 50 ML IV SCH (09:32)
[2020-10-12] MEDS: ENOXAPARIN 40MG/0.4ML SYR SUBCUT SCH (09:32)
[2020-10-12] MEDS: FLUTICASONE PROPIONATE 50MCG/SPRAY BOTTLE BOTHNSTRLS SCH (09:33)
[2020-10-12] MEDS: LEVOFLOXACIN 500MG PREMIX 100 ML IV SCH (21:10)
[2020-10-13] VITALS (13 sets, daily range): BP systolic 81–137; BP diastolic 58–101
[2020-10-13] MEDS: METHYLPREDNISOLONE SOD SUCC 40 MG/ML VIAL IV SCH ×3 (00:03→21:03)
[2020-10-13] MEDS: IPRATROPIUM/ALBUTEROL 0.5-3(2.5)MG/3ML NEB HHN SCH ×6 (01:04→20:45)
[2020-10-13] MEDS: CEFTRIAXONE 1,000 MG in DEXTROSE 5% WATER 50 ML IV SCH (08:25)
[2020-10-13] MEDS: FAMOTIDINE 20MG TABLET PO SCH ×2 (08:25→21:03)
[2020-10-13] MEDS: ENOXAPARIN 40MG/0.4ML SYR SUBCUT SCH (08:25)
[2020-10-13] MEDS: LEVETIRACETAM 500MG TABLET PO SCH ×2 (08:26→21:03)
[2020-10-13] MEDS: BUSPIRONE HCL 5MG TABLET PO SCH ×2 (08:26→21:03)
[2020-10-13] MEDS: FLUTICASONE PROPIONATE 50MCG/SPRAY BOTTLE BOTHNSTRLS SCH (09:42)
[2020-10-13] MEDS: LEVOFLOXACIN 500MG TABLET PO SCH (16:51)
[2020-10-14] VITALS (7 sets, daily range): BP systolic 93–144; BP diastolic 40–90
[2020-10-14] MEDS: IPRATROPIUM/ALBUTEROL 0.5-3(2.5)MG/3ML NEB HHN SCH ×3 (00:14→08:20)
[2020-10-14] MEDS: CEFTRIAXONE 1,000 MG in DEXTROSE 5% WATER 50 ML IV SCH (08:24)
[2020-10-14] MEDS: LEVETIRACETAM 500MG TABLET PO SCH (08:24)
[2020-10-14] MEDS: ENOXAPARIN 40MG/0.4ML SYR SUBCUT SCH (08:24)
[2020-10-14] MEDS: METHYLPREDNISOLONE SOD SUCC 40 MG/ML VIAL IV SCH (08:24)
[2020-10-14] MEDS: BUSPIRONE HCL 5MG TABLET PO SCH (08:25)
[2020-10-14] MEDS: FAMOTIDINE 20MG TABLET PO SCH (08:25)
[2020-10-14] MEDS: LEVOFLOXACIN 500MG TABLET PO SCH (11:13)
== END 2020-10-14 12:15 | disposition home or self-care (01) | DRG 871 ==
LOC: ER 20:21 → MICUSO 22:32 → 5EST 10-10 19:36
PROVIDERS: ADMIT Internal Medicine; ATTEND Internal Medicine
PROC: 5A09457 Assistance with Respiratory Ventilation, 24-96 Consecutive Hours, Continuous Positive Airway Pressure (ICD-10-PCS; principal; 2020-10-09)
DX: A41.9 Sepsis, unspecified organism (principal); J96.21 Acute and chronic respiratory failure with hypoxia; J18.9 Pneumonia, unspecified organism; J44.1 Chronic obstructive pulmonary disease with (acute) exacerbation; G40.909 Epilepsy, unspecified, not intractable, without status epilepticus; E03.9 Hypothyroidism, unspecified; F41.9 Anxiety disorder, unspecified; I11.0 Hypertensive heart disease with heart failure; I50.9 Heart failure, unspecified; Z82.49 Family history of ischemic heart disease and other diseases of the circulatory system; Z87.891 Personal history of nicotine dependence; Z99.81 Dependence on supplemental oxygen; Z79.899 Other long term (current) drug therapy; Z20.822 Contact with and (suspected) exposure to COVID-19
CPT/HCPCS: 36415; 36600; 71045; 80048; 80053; 82375; 82805; 83605; 84145; 85025; 85027; 87426; 93005; 94640; 94660; 99291; J0696; J1650; J1956; J2920; J2930; J3475; J7040; J7060

== ENCOUNTER 2021-06-02 15:21 | Inpatient (IN) | payer MEDICARE, OTHER ==
[~2021-06-02] VITALS: Ht 167.6 cm; Wt 40.8 kg
[2021-06-02] MEDS ORDERED: ALBUTEROL (0.083%) 2.5MG/3ML NEB HHN STA ×2 (15:26→16:21)
[2021-06-02] MEDS ORDERED: IPRATROPIUM BROMIDE (0.02%) 0.5MG/2.5ML NEB HHN STA (15:26)
[2021-06-02] MEDS ORDERED: SODIUM CHLORIDE 10% FOR INH 15ML VIAL NEB INH SCH (16:00)
[2021-06-02] MEDS ORDERED: SODIUM CHLORIDE 0.9% 1000ML BAG (SEPSIS BOLUS) IV ONE (16:00)
[2021-06-02] MEDS ORDERED: LEVOFLOXACIN 750MG PREMIX 150 ML IV ONE (16:00)
[2021-06-02] MEDS ORDERED: ASPIRIN 81MG TABLET PO ONE (16:00)
[2021-06-02 16:24] LABS: BASOPHILS % 0.9 % (0.0-2.0); HEMATOCRIT. 37.8 % (36.0-48.0); HEMOGLOBIN. 12.4 g/dL (12.0-16.0); LYMPHOCYTES % 35.5 % (20.0-50.0); MEAN CORPUSCULAR HEMOGLOBIN 28.7 pg (28.0-32.0); MEAN CORPUSCULAR VOLUME 87.5 fL (81.0-99.0); MEAN PLATELET VOLUME 7.8 fl (7.4-10.4); MONOCYTES % 13.9 % (2.0-8.0); NEUTROPHILS % 47.7 % (40.0-76.0); PLATELET 229 x1000/uL (130-400); RED BLOOD CELL COUNT 4.32 mill/uL (4.2-5.4); RED CELL DISTRIBUTION WIDTH 14.3 % (11.6-14.6)
[2021-06-02] MEDS ORDERED: ALBUTEROL (0.083%) 2.5MG/3ML NEB ONE (16:24)
[2021-06-02 16:32] LABS: CHLORIDE 103 mEq/L (98-107)
[2021-06-02 16:44] LABS: CLARITY URINE TURBID (CLEAR); COLOR URINE YELLOW (YELLOW); KETONES URINE NEGATIVE (NEGATIVE); LEUKOCYTE ESTERASE URINE NEGATIVE (NEGATIVE); NITRITE URINE NEGATIVE (NEGATIVE); OCCULT BLOOD URINE NEGATIVE (NEGATIVE); PROTEIN URINE NEGATIVE (NEGATIVE); SPECIFIC GRAVITY URINE 1.017 (1.005-1.030); UROBILINOGEN URINE 0.2 E.U./dL (0.2-1.0)
[2021-06-02] MEDS ORDERED: METHYLPREDNISOLONE SOD SUCC 125 MG/2 ML VIAL IV STA (20:31)
[2021-06-02] MEDS ORDERED: OSELTAMIVIR 75MG CAPSULE PO ONE (20:45)
[2021-06-03] VITALS (7 sets, daily range): BP systolic 97–147; BP diastolic 62–85
[2021-06-03] MEDS ORDERED: IPRATROPIUM/ALBUTEROL 0.5-3(2.5)MG/3ML NEB HHN PRN (07:00)
[2021-06-03] MEDS ORDERED: ENOXAPARIN 40MG/0.4ML SYR SUBCUT SCH (09:00)
[2021-06-03] MEDS: METHYLPREDNISOLONE SOD SUCC 40 MG/ML VIAL IV SCH ×2 (09:30→13:52)
[2021-06-03] MEDS: ENOXAPARIN 30MG/0.3ML SYR SUBCUT SCH (09:31)
[2021-06-03] MEDS: LEVOFLOXACIN 500MG TABLET PO SCH (11:45)
[2021-06-03] MEDS ORDERED: ACETAMINOPHEN 325MG TABLET PO PRN (12:45)
[2021-06-03] MEDS: BUDESONIDE 0.5MG/2ML NEB HHN SCH (21:15)
[2021-06-04] VITALS: BP 134/88
[2021-06-04 04:00] VITALS: BP 118/71
[2021-06-04 08:00] VITALS: BP 108/62
[2021-06-04] MEDS: ENOXAPARIN 30MG/0.3ML SYR SUBCUT SCH (08:21)
[2021-06-04] MEDS: FLUTICASONE PROPIONATE 50MCG/SPRAY BOTTLE BOTHNSTRLS SCH ×2 (08:21→21:00)
[2021-06-04] MEDS: BUDESONIDE 0.5MG/2ML NEB HHN SCH ×2 (09:24→21:02)
[2021-06-04] MEDS: LEVOFLOXACIN 500MG TABLET PO SCH (11:32)
[2021-06-04] MEDS ORDERED: DIPHENHYDRAMINE 25MG CAPSULE PO PRN (15:30)
[2021-06-04] MEDS: PHENYLEPHRINE HCL 1% 15 ML NASAL SPRAY BOTHNSTRLS PRN (15:39)
[2021-06-04] MEDS ORDERED: LORATADINE 10MG TABLET PO PRN (15:45)
[2021-06-04 16:00] VITALS: BP 112/64
[2021-06-04 20:00] VITALS: BP 101/64
[2021-06-05] VITALS: BP 131/81
[2021-06-05 04:00] VITALS: BP 101/59
[2021-06-05 08:02] VITALS: BP 104/68
[2021-06-05] MEDS: PHENYLEPHRINE HCL 1% 15 ML NASAL SPRAY BOTHNSTRLS PRN ×2 (09:58→21:02)
[2021-06-05] MEDS: ENOXAPARIN 30MG/0.3ML SYR SUBCUT SCH (09:58)
[2021-06-05] MEDS: LEVOFLOXACIN 500MG TABLET PO SCH (10:00)
[2021-06-05 12:40] VITALS: BP 127/51
[2021-06-05] MEDS: FLUTICASONE PROPIONATE 50MCG/SPRAY BOTTLE BOTHNSTRLS SCH ×2 (12:47→21:03)
[2021-06-05 15:45] VITALS: BP 107/62
[2021-06-05] MEDS ORDERED: PHENYLEPHRINE HCL 1% 15 ML NASAL SPRAY BOTHNSTRLS PRN (17:45)
[2021-06-05 20:00] VITALS: BP 92/52
[2021-06-05] MEDS: BUDESONIDE 0.5MG/2ML NEB HHN SCH (21:14)
[2021-06-06] VITALS: BP 122/62
[2021-06-06 06:13] LABS: CHLORIDE 100 mEq/L (98-107)
[2021-06-06 07:14] LABS: BASOPHILS % 0.6 % (0.0-2.0); EOSINOPHILS % 2.7 % (0.0-5.0); HEMATOCRIT. 36.3 % (36.0-48.0); HEMOGLOBIN. 11.6 g/dL (12.0-16.0); LYMPHOCYTES % 30.3 % (20.0-50.0); MEAN CORPUSCULAR HEMOGLOBIN 28.1 pg (28.0-32.0); MEAN CORPUSCULAR VOLUME 87.9 fL (81.0-99.0); MEAN PLATELET VOLUME 8.7 fl (7.4-10.4); NEUTROPHILS % 52.4 % (40.0-76.0); PLATELET 179 x1000/uL (130-400); RED BLOOD CELL COUNT 4.13 mill/uL (4.2-5.4); RED CELL DISTRIBUTION WIDTH 14.3 % (11.6-14.6)
[2021-06-06 08:00] VITALS: BP 117/48
[2021-06-06] MEDS: ENOXAPARIN 30MG/0.3ML SYR SUBCUT SCH (08:46)
[2021-06-06] MEDS: FLUTICASONE PROPIONATE 50MCG/SPRAY BOTTLE BOTHNSTRLS SCH ×2 (08:48→21:23)
[2021-06-06] MEDS: BUDESONIDE 0.5MG/2ML NEB HHN SCH (09:31)
[2021-06-06 12:00] VITALS: BP 115/43
[2021-06-06] MEDS: LEVOFLOXACIN 500MG TABLET PO SCH (12:47)
[2021-06-06 16:00] VITALS: BP 114/45
[2021-06-06 20:00] VITALS: BP 114/76
[2021-06-06] MEDS: PHENYLEPHRINE HCL 1% 15 ML NASAL SPRAY BOTHNSTRLS PRN (21:21)
[2021-06-07] VITALS (7 sets, daily range): BP systolic 93–121; BP diastolic 62–80
[2021-06-07] MEDS: ENOXAPARIN 30MG/0.3ML SYR SUBCUT SCH (09:34)
[2021-06-07] MEDS: LEVOFLOXACIN 500MG TABLET PO SCH (12:07)
[2021-06-07] MEDS: PHENYLEPHRINE HCL 1% 15 ML NASAL SPRAY BOTHNSTRLS PRN (14:07)
[2021-06-08 04:00] VITALS: BP 104/61
[2021-06-08 08:00] VITALS: BP 110/75
[2021-06-08] MEDS: ENOXAPARIN 30MG/0.3ML SYR SUBCUT SCH (09:57)
[2021-06-08] MEDS ORDERED: LORAZEPAM 0.5MG TABLET PO NR (11:00)
[2021-06-08 12:16] VITALS: BP 102/77
[2021-06-08 16:00] VITALS: BP 137/87
[2021-06-08] MEDS ORDERED: LORAZEPAM 0.5MG TABLET PO PRN (19:15)
[2021-06-08 20:00] VITALS: BP 123/75
[2021-06-09] VITALS: BP 110/62
[2021-06-09 04:00] VITALS: BP 118/70
[2021-06-09 08:00] VITALS: BP 126/70
[2021-06-09] MEDS: ENOXAPARIN 30MG/0.3ML SYR SUBCUT SCH (09:15)
[2021-06-09 11:45] VITALS: BP 125/75
[2021-06-09 14:02] VITALS: BP 125/75
== END 2021-06-09 15:20 | disposition home or self-care (01) | DRG 193 ==
LOC: ER 15:21 → MICUSO 18:21 → ENRESERV 23:05 → 5WST 06-03 02:00 → 6WST 06-04 11:36
PROVIDERS: ADMIT Internal Medicine; ATTEND Internal Medicine
DX: J18.9 Pneumonia, unspecified organism (principal); J96.20 Acute and chronic respiratory failure, unspecified whether with hypoxia or hypercapnia; R64 Cachexia; C34.90 Malignant neoplasm of unspecified part of unspecified bronchus or lung; Z68.1 Body mass index [BMI] 19.9 or less, adult; G40.909 Epilepsy, unspecified, not intractable, without status epilepticus; I10 Essential (primary) hypertension; D72.821 Monocytosis (symptomatic); Z22.7 Latent tuberculosis; Z82.49 Family history of ischemic heart disease and other diseases of the circulatory system; Z87.891 Personal history of nicotine dependence; Z86.11 Personal history of tuberculosis; Z86.15 Personal history of latent tuberculosis infection; Z99.81 Dependence on supplemental oxygen; Z79.899 Other long term (current) drug therapy; J44.9 Chronic obstructive pulmonary disease, unspecified
CPT/HCPCS: 36415; 71045; 71250; 80048; 80053; 81003; 83605; 83880; 84145; 84484; 85025; 86635; 87116; 87804; 93005; 94640; 97162; 97166; 97530; 99285; J1650; J1956; J2920; J2930; J7030; J7131; J7626; Q0163

== ENCOUNTER 2021-10-17 22:44 | Inpatient (IN) | payer MEDICARE, OTHER ==
[~2021-10-17] VITALS: Ht 160 cm; Wt 34.5 kg
[2021-10-17] MEDS ORDERED: IPRATROPIUM BROMIDE (0.02%) 0.5MG/2.5ML NEB HHN STA (23:51)
[2021-10-17] MEDS ORDERED: METHYLPREDNISOLONE SOD SUCC 125 MG/2 ML VIAL IV STA (23:51)
[2021-10-18] MEDS ORDERED: MAGNESIUM 2 G PREMIX 50 ML IV ONE
[2021-10-18] MEDS: ALBUTEROL (0.083%) 2.5MG/3ML NEB HHN SCH ×3 (00:30→01:00)
[2021-10-18 00:42] LABS: BASOPHILS % 0.4 % (0.0-2.0); EOSINOPHILS % 0.5 % (0.0-5.0); HEMATOCRIT. 38.9 % (36.0-48.0); HEMOGLOBIN. 12.3 g/dL (12.0-16.0); LYMPHOCYTES % 19.8 % (20.0-50.0); MEAN CORPUSCULAR HEMOGLOBIN 28.1 pg (28.0-32.0); MEAN CORPUSCULAR VOLUME 88.9 fL (81.0-99.0); MEAN PLATELET VOLUME 7.9 fl (7.4-10.4); MONOCYTES % 14.9 % (2.0-8.0); NEUTROPHILS % 64.4 % (40.0-76.0); PLATELET 236 x1000/uL (130-400); RED BLOOD CELL COUNT 4.37 mill/uL (4.2-5.4); RED CELL DISTRIBUTION WIDTH 14.4 % (11.6-14.6)
[2021-10-18 00:45] LABS: CHLORIDE 101 mEq/L (98-107)
[2021-10-18] MEDS ORDERED: ONDANSETRON HCL 4MG/2ML INJ IV PRN (07:45)
[2021-10-18] MEDS ORDERED: IPRATROPIUM/ALBUTEROL 0.5-3(2.5)MG/3ML NEB HHN SCH (08:00)
[2021-10-18] MEDS ORDERED: IPRATROPIUM BROMIDE (0.02%) 0.5MG/2.5ML NEB HHN NR (13:00)
[2021-10-18] MEDS: METHYLPREDNISOLONE SOD SUCC 40 MG/ML VIAL IV SCH ×2 (13:30→21:07)
[2021-10-18] MEDS: IPRATROPIUM BROMIDE (0.02%) 0.5MG/2.5ML NEB HHN SCH ×3 (15:12→20:48)
[2021-10-18 15:31] LABS: BG BASE EXCESS 7.9 mmol/L (-2.0-2.0); BG CARBOXYHEMOGLOBIN 0.3 % (0.5-1.5); BG DEOXYHEMOGLOBIN 11.8 % (0.0-5.0); BG FRACTION INSPIRED OXYGEN 28; BG HCO3 ACT 34.4 mmol/L (22.0-26.0); BG METHEMOGLOBIN 0.3 % (0.0-1.5); BG OXYGEN SATURATION 88.1 % (92.0-98.5); BG OXYHEMOGLOBIN 87.6 % (94.0-97.0); BG PCO2 57.5 mmHg (35.0-45.0); BG PH 7.395 (7.350-7.450); BG PO2 53.8 mmHg (75.0-100.0); BG TOTAL HEMOGLOBIN 11.7 g/dL (12.0-18.0); BG VENT MODE NASAL CANNULA
[2021-10-18] MEDS ORDERED: AZITHROMYCIN 500MG/250ML 250 ML IV SCH (17:00)
[2021-10-18 20:00] VITALS: BP 115/66
[2021-10-18] MEDS: FAMOTIDINE 20MG TABLET PO SCH (20:43)
[2021-10-18] MEDS: GUAIFENESIN 600MG ER TABLET PO SCH (21:00)
[2021-10-19] VITALS (9 sets, daily range): BP systolic 101–145; BP diastolic 61–89
[2021-10-19] MEDS: IPRATROPIUM BROMIDE (0.02%) 0.5MG/2.5ML NEB HHN SCH ×5 (00:33→21:50)
[2021-10-19] MEDS: METHYLPREDNISOLONE SOD SUCC 40 MG/ML VIAL IV SCH ×3 (06:09→21:06)
[2021-10-19] MEDS: GUAIFENESIN 600MG ER TABLET PO SCH ×2 (09:00→21:06)
[2021-10-19] MEDS ORDERED: LIDOCAINE HCL/PF 1% 2ML VIAL ONE (10:22)
[2021-10-19 10:52] LABS: BG BASE EXCESS 3.6 mmol/L (-2.0-2.0); BG CARBOXYHEMOGLOBIN 0.3 % (0.5-1.5); BG DEOXYHEMOGLOBIN 4.2 % (0.0-5.0); BG FRACTION INSPIRED OXYGEN 30; BG HCO3 ACT 30.1 mmol/L (22.0-26.0); BG METHEMOGLOBIN 0.8 % (0.0-1.5); BG OXYGEN SATURATION 95.8 % (92.0-98.5); BG OXYHEMOGLOBIN 94.7 % (94.0-97.0); BG PCO2 53.8 mmHg (35.0-45.0); BG PH 7.365 (7.350-7.450); BG PO2 84.9 mmHg (75.0-100.0); BG SAMPLE SITE RIGHT RADIAL; BG TOTAL HEMOGLOBIN 12.8 g/dL (12.0-18.0); BG TOTAL RESPIRATORY RATE 23 b/min; BG VENT MODE MASK - BIPAP
[2021-10-19] MEDS ORDERED: IPRATROPIUM/ALBUTEROL 0.5-3(2.5)MG/3ML NEB HHN SCH (12:30)
[2021-10-19] MEDS ORDERED: IPRATROPIUM BROMIDE (0.02%) 0.5MG/2.5ML NEB HHN SCH (15:00)
[2021-10-19] MEDS: AZITHROMYCIN 500 MG in DEXT 5% WATER 250 ML IV SCH (17:54)
[2021-10-19] MEDS: ENOXAPARIN 30MG/0.3ML SYR SUBCUT SCH (17:56)
[2021-10-19] MEDS: FAMOTIDINE 20MG TABLET PO SCH (21:06)
[2021-10-20] VITALS (10 sets, daily range): BP systolic 98–125; BP diastolic 65–103
[2021-10-20] MEDS: IPRATROPIUM BROMIDE (0.02%) 0.5MG/2.5ML NEB HHN SCH ×6 (01:32→21:43)
[2021-10-20] MEDS: LORAZEPAM 1MG TABLET PO PRN (03:21)
[2021-10-20] MEDS: METHYLPREDNISOLONE SOD SUCC 40 MG/ML VIAL IV SCH ×3 (06:28→21:00)
[2021-10-20] MEDS: GUAIFENESIN 600MG ER TABLET PO SCH ×2 (08:17→20:51)
[2021-10-20] MEDS: AZITHROMYCIN 500 MG in DEXT 5% WATER 250 ML IV SCH (16:04)
[2021-10-20] MEDS: ENOXAPARIN 30MG/0.3ML SYR SUBCUT SCH (16:05)
[2021-10-20] MEDS: FAMOTIDINE 20MG TABLET PO SCH (20:43)
[2021-10-21] VITALS (12 sets, daily range): BP systolic 88–133; BP diastolic 58–76
[2021-10-21] MEDS: IPRATROPIUM BROMIDE (0.02%) 0.5MG/2.5ML NEB HHN SCH ×4 (05:54→21:12)
[2021-10-21 06:21] LABS: BASOPHILS % 0.4 % (0.0-2.0); HEMATOCRIT. 32.6 % (36.0-48.0); HEMOGLOBIN. 10.8 g/dL (12.0-16.0); LYMPHOCYTES % 16.9 % (20.0-50.0); MEAN CORPUSCULAR HEMOGLOBIN 29.1 pg (28.0-32.0); MEAN CORPUSCULAR VOLUME 87.9 fL (81.0-99.0); MEAN PLATELET VOLUME 7.7 fl (7.4-10.4); MONOCYTES % 14.3 % (2.0-8.0); NEUTROPHILS % 68.4 % (40.0-76.0); PLATELET 238 x1000/uL (130-400); RED BLOOD CELL COUNT 3.71 mill/uL (4.2-5.4); RED CELL DISTRIBUTION WIDTH 14.1 % (11.6-14.6)
[2021-10-21 06:50] LABS: CHLORIDE 100 mEq/L (98-107)
[2021-10-21] MEDS: GUAIFENESIN 600MG ER TABLET PO SCH ×2 (09:00→20:56)
[2021-10-21] MEDS: METHYLPREDNISOLONE SOD SUCC 40 MG/ML VIAL IV SCH ×2 (14:43→20:56)
[2021-10-21] MEDS: ENOXAPARIN 30MG/0.3ML SYR SUBCUT SCH (17:51)
[2021-10-21] MEDS: FAMOTIDINE 20MG TABLET PO SCH (20:56)
[2021-10-22] VITALS (13 sets, daily range): BP systolic 94–128; BP diastolic 52–73
[2021-10-22] MEDS: IPRATROPIUM BROMIDE (0.02%) 0.5MG/2.5ML NEB HHN SCH ×4 (01:29→20:31)
[2021-10-22] MEDS: GUAIFENESIN 600MG ER TABLET PO SCH ×2 (09:00→21:00)
[2021-10-22] MEDS: METHYLPREDNISOLONE SOD SUCC 40 MG/ML VIAL IV SCH ×2 (09:00→21:51)
[2021-10-22 12:06] LABS: BASOPHILS % 0.3 % (0.0-2.0); HEMATOCRIT. 33.8 % (36.0-48.0); HEMOGLOBIN. 11.2 g/dL (12.0-16.0); LYMPHOCYTES % 10.6 % (20.0-50.0); MEAN CORPUSCULAR HEMOGLOBIN 29.2 pg (28.0-32.0); MEAN PLATELET VOLUME 8.8 fl (7.4-10.4); MONOCYTES % 13.4 % (2.0-8.0); NEUTROPHILS % 75.7 % (40.0-76.0); PLATELET 242 x1000/uL (130-400); RED BLOOD CELL COUNT 3.84 mill/uL (4.2-5.4); RED CELL DISTRIBUTION WIDTH 13.8 % (11.6-14.6)
[2021-10-22 12:26] LABS: CHLORIDE 96 mEq/L (98-107)
[2021-10-22] MEDS: ENOXAPARIN 30MG/0.3ML SYR SUBCUT SCH (18:29)
[2021-10-22] MEDS: BUDESONIDE 0.5MG/2ML NEB HHN SCH (20:32)
[2021-10-22] MEDS: FAMOTIDINE 20MG TABLET PO SCH (21:51)
[2021-10-23] VITALS (12 sets, daily range): BP systolic 95–135; BP diastolic 51–92
[2021-10-23] MEDS: IPRATROPIUM BROMIDE (0.02%) 0.5MG/2.5ML NEB HHN SCH ×7 (00:15→21:23)
[2021-10-23] MEDS: ACETAMINOPHEN 325MG TABLET PO PRN (01:55)
[2021-10-23] MEDS: LORAZEPAM 1MG TABLET PO PRN ×2 (01:55→20:31)
[2021-10-23] MEDS: METHYLPREDNISOLONE SOD SUCC 40 MG/ML VIAL IV SCH ×2 (08:38→20:30)
[2021-10-23] MEDS: GUAIFENESIN 600MG ER TABLET PO SCH ×2 (08:39→20:30)
[2021-10-23] MEDS: BUDESONIDE 0.5MG/2ML NEB HHN SCH ×2 (08:50→21:23)
[2021-10-23] MEDS: ENOXAPARIN 30MG/0.3ML SYR SUBCUT SCH (18:18)
[2021-10-23] MEDS ORDERED: LORAZEPAM 1MG TABLET PO PRN (20:00)
[2021-10-23] MEDS: FAMOTIDINE 20MG TABLET PO SCH (20:30)
[2021-10-24] VITALS (12 sets, daily range): BP systolic 97–127; BP diastolic 59–89
[2021-10-24] MEDS: IPRATROPIUM BROMIDE (0.02%) 0.5MG/2.5ML NEB HHN SCH ×5 (05:07→20:53)
[2021-10-24] MEDS: METHYLPREDNISOLONE SOD SUCC 40 MG/ML VIAL IV SCH ×2 (08:36→20:44)
[2021-10-24] MEDS: GUAIFENESIN 600MG ER TABLET PO SCH ×2 (08:36→20:44)
[2021-10-24] MEDS: BUDESONIDE 0.5MG/2ML NEB HHN SCH ×2 (11:55→20:52)
[2021-10-24] MEDS: ENOXAPARIN 30MG/0.3ML SYR SUBCUT SCH (18:14)
[2021-10-24] MEDS: FAMOTIDINE 20MG TABLET PO SCH (20:44)
[2021-10-24] MEDS: LORAZEPAM 1MG TABLET PO PRN (20:53)
[2021-10-24] MEDS: ACETAMINOPHEN 325MG TABLET PO PRN (20:58)
[2021-10-25] VITALS (12 sets, daily range): BP systolic 87–132; BP diastolic 47–102
[2021-10-25] MEDS: IPRATROPIUM BROMIDE (0.02%) 0.5MG/2.5ML NEB HHN SCH ×6 (04:44→21:14)
[2021-10-25 06:39] LABS: CHLORIDE 99 mEq/L (98-107)
[2021-10-25 06:44] LABS: BASOPHILS % 0.5 % (0.0-2.0); HEMATOCRIT. 33.6 % (36.0-48.0); LYMPHOCYTES % 16.7 % (20.0-50.0); MEAN CORPUSCULAR HEMOGLOBIN 28.8 pg (28.0-32.0); MEAN CORPUSCULAR VOLUME 88.4 fL (81.0-99.0); MEAN PLATELET VOLUME 7.9 fl (7.4-10.4); MONOCYTES % 7.3 % (2.0-8.0); NEUTROPHILS % 75.5 % (40.0-76.0); PLATELET 222 x1000/uL (130-400); RED BLOOD CELL COUNT 3.81 mill/uL (4.2-5.4); RED CELL DISTRIBUTION WIDTH 14.2 % (11.6-14.6)
[2021-10-25] MEDS: BUDESONIDE 0.5MG/2ML NEB HHN SCH ×2 (07:15→21:14)
[2021-10-25] MEDS: GUAIFENESIN 600MG ER TABLET PO SCH ×2 (09:00→20:46)
[2021-10-25] MEDS: METHYLPREDNISOLONE SOD SUCC 40 MG/ML VIAL IV SCH ×2 (10:12→20:46)
[2021-10-25] MEDS: ENOXAPARIN 30MG/0.3ML SYR SUBCUT SCH (18:03)
[2021-10-25] MEDS: FAMOTIDINE 20MG TABLET PO SCH (20:46)
[2021-10-25] MEDS ORDERED: MED4 MT (21:32)
[2021-10-25] MEDS ORDERED: FAMO20TA8 PO (21:32)
[2021-10-25] MEDS ORDERED: ATOR20TA65 MT (21:35)
[2021-10-25] MEDS: ACETAMINOPHEN 325MG TABLET PO PRN (21:56)
[2021-10-25] MEDS: LORAZEPAM 1MG TABLET PO PRN (21:56)
[2021-10-26] VITALS (12 sets, daily range): BP systolic 97–124; BP diastolic 56–76
[2021-10-26] MEDS: IPRATROPIUM BROMIDE (0.02%) 0.5MG/2.5ML NEB HHN SCH ×6 (00:42→21:10)
[2021-10-26] MEDS: GUAIFENESIN 600MG ER TABLET PO SCH ×2 (17:38→20:22)
[2021-10-26] MEDS: ENOXAPARIN 30MG/0.3ML SYR SUBCUT SCH (17:39)
[2021-10-26] MEDS: FAMOTIDINE 20MG TABLET PO SCH (20:22)
[2021-10-26] MEDS: LORAZEPAM 1MG TABLET PO PRN (20:22)
[2021-10-26] MEDS: ACETAMINOPHEN 325MG TABLET PO PRN (20:26)
[2021-10-27] VITALS (11 sets, daily range): BP systolic 80–122; BP diastolic 48–74
[2021-10-27] MEDS: IPRATROPIUM BROMIDE (0.02%) 0.5MG/2.5ML NEB HHN SCH ×7 (00:13→20:43)
[2021-10-27] MEDS: PREDNISONE 20MG TABLET PO SCH (09:51)
[2021-10-27] MEDS: GUAIFENESIN 600MG ER TABLET PO SCH ×2 (09:52→20:53)
[2021-10-27] MEDS: ENOXAPARIN 30MG/0.3ML SYR SUBCUT SCH (17:20)
[2021-10-27] MEDS: FAMOTIDINE 20MG TABLET PO SCH (20:53)
[2021-10-27] MEDS: ACETAMINOPHEN 325MG TABLET PO PRN (20:53)
[2021-10-27] MEDS: LORAZEPAM 1MG TABLET PO PRN (20:53)
[2021-10-28] VITALS (12 sets, daily range): BP systolic 85–146; BP diastolic 53–76
[2021-10-28] MEDS: IPRATROPIUM BROMIDE (0.02%) 0.5MG/2.5ML NEB HHN SCH ×6 (00:54→20:56)
[2021-10-28] MEDS: PREDNISONE 20MG TABLET PO SCH (08:46)
[2021-10-28] MEDS: GUAIFENESIN 600MG ER TABLET PO SCH ×2 (08:46→20:50)
[2021-10-28] MEDS: ENOXAPARIN 30MG/0.3ML SYR SUBCUT SCH (18:00)
[2021-10-28] MEDS: FAMOTIDINE 20MG TABLET PO SCH (20:50)
[2021-10-28] MEDS ORDERED: LORAZEPAM 1MG TABLET PO PRN (22:15)
[2021-10-29] VITALS (8 sets, daily range): BP systolic 104–128; BP diastolic 53–81
[2021-10-29] MEDS: IPRATROPIUM BROMIDE (0.02%) 0.5MG/2.5ML NEB HHN SCH ×4 (00:27→11:00)
[2021-10-29] MEDS: PREDNISONE 20MG TABLET PO SCH (09:00)
[2021-10-29] MEDS: GUAIFENESIN 600MG ER TABLET PO SCH (09:00)
[2021-10-30] MEDS ORDERED: PREDNISONE 10MG TABLET PO SCH (09:00)
== END 2021-10-29 15:09 | disposition home or self-care (01) | DRG 189 ==
LOC: ER 22:44 → 5EST 10-18 03:28 → ENRESERV 10-18 07:15 → CANRESERV 10-18 07:15 → EDBEDREQSVC 10-18 08:22
PROVIDERS: ADMIT Internal Medicine; ATTEND Internal Medicine
PROC: 5A09357 Assistance with Respiratory Ventilation, Less than 24 Consecutive Hours, Continuous Positive Airway Pressure (ICD-10-PCS; principal; 2021-10-18)
PROC: 5A09357 Assistance with Respiratory Ventilation, Less than 24 Consecutive Hours, Continuous Positive Airway Pressure (ICD-10-PCS; 2021-10-19)
PROC: 5A09357 Assistance with Respiratory Ventilation, Less than 24 Consecutive Hours, Continuous Positive Airway Pressure (ICD-10-PCS; 2021-10-20)
PROC: 5A09357 Assistance with Respiratory Ventilation, Less than 24 Consecutive Hours, Continuous Positive Airway Pressure (ICD-10-PCS; 2021-10-21)
PROC: 5A09357 Assistance with Respiratory Ventilation, Less than 24 Consecutive Hours, Continuous Positive Airway Pressure (ICD-10-PCS; 2021-10-22)
PROC: 5A09357 Assistance with Respiratory Ventilation, Less than 24 Consecutive Hours, Continuous Positive Airway Pressure (ICD-10-PCS; 2021-10-23)
PROC: 5A09357 Assistance with Respiratory Ventilation, Less than 24 Consecutive Hours, Continuous Positive Airway Pressure (ICD-10-PCS; 2021-10-24)
PROC: 5A09357 Assistance with Respiratory Ventilation, Less than 24 Consecutive Hours, Continuous Positive Airway Pressure (ICD-10-PCS; 2021-10-25)
PROC: 5A09357 Assistance with Respiratory Ventilation, Less than 24 Consecutive Hours, Continuous Positive Airway Pressure (ICD-10-PCS; 2021-10-26)
PROC: 5A09357 Assistance with Respiratory Ventilation, Less than 24 Consecutive Hours, Continuous Positive Airway Pressure (ICD-10-PCS; 2021-10-27)
PROC: 5A09357 Assistance with Respiratory Ventilation, Less than 24 Consecutive Hours, Continuous Positive Airway Pressure (ICD-10-PCS; 2021-10-29)
DX: J96.21 Acute and chronic respiratory failure with hypoxia (principal); E87.2 Acidosis; Z68.1 Body mass index [BMI] 19.9 or less, adult; R64 Cachexia; J96.22 Acute and chronic respiratory failure with hypercapnia; Z20.822 Contact with and (suspected) exposure to COVID-19; I10 Essential (primary) hypertension; J43.9 Emphysema, unspecified; J42 Unspecified chronic bronchitis; R91.8 Other nonspecific abnormal finding of lung field; R56.9 Unspecified convulsions; Z87.891 Personal history of nicotine dependence; Z79.899 Other long term (current) drug therapy; Z99.81 Dependence on supplemental oxygen
CPT/HCPCS: 36415; 36600; 71045; 80048; 80053; 82375; 82805; 83605; 83880; 84484; 85025; 87426; 93005; 94003; 94640; 94660; 97116; 97162; 97166; 97530; 99291; C9803; J0456; J1650; J2405; J2920; J2930; J3475; J3490; J7060; J7512; J7626